=== PATIENT | female | born 1935 | race Caucasian/White ===

== ENCOUNTER → 2023-02-07 11:40 | Outpatient (REF) | payer MEDICARE, OTHER, SELFPAY | LOC: WOUND 11:40 | PROVIDERS: ATTENDING PHYSICIAN Surgery; REFERRING PHYSICIAN Internal Medicine | DX: T81.31XA Disruption of external operation (surgical) wound, not elsewhere classified, initial encounter (principal); I87.311 Chronic venous hypertension (idiopathic) with ulcer of right lower extremity; L97.812 Non-pressure chronic ulcer of other part of right lower leg with fat layer exposed; S51.001A Unspecified open wound of right elbow, initial encounter; I87.2 Venous insufficiency (chronic) (peripheral); Y83.8 Other surgical procedures as the cause of abnormal reaction of the patient, or of later complication, without mention of misadventure at the time of the procedure | CPT/HCPCS: 29581; 97597; 99213 ==

== ENCOUNTER → 2023-02-13 10:14 | Outpatient (REF) | payer MEDICARE, OTHER, SELFPAY | LOC: WOUND 10:14 | PROVIDERS: ATTENDING PHYSICIAN Surgery; REFERRING PHYSICIAN Internal Medicine | DX: T81.31XA Disruption of external operation (surgical) wound, not elsewhere classified, initial encounter (principal); I87.311 Chronic venous hypertension (idiopathic) with ulcer of right lower extremity; L97.812 Non-pressure chronic ulcer of other part of right lower leg with fat layer exposed; S51.001A Unspecified open wound of right elbow, initial encounter; I87.2 Venous insufficiency (chronic) (peripheral); Y83.8 Other surgical procedures as the cause of abnormal reaction of the patient, or of later complication, without mention of misadventure at the time of the procedure | CPT/HCPCS: 11042; 29581; 97597 ==

== ENCOUNTER 2023-08-16 16:21 | Emergency (ER) | payer MEDICARE, OTHER, SELFPAY ==
[2023-08-16 16:29] VITALS: BP 147/58
--- NOTE | 2023-08-16 17:41 | ED.GENMED ---
History of Present Illness
<Jenny Evans PA-C - Last Filed: 08/17/23 00:53>
General
Chief Complaint: Extremity Pain (non-traumatic)
Source: patient
Exam Limitations: none
Time Seen by Provider: 08/16/23 16:52
Nursing documentation reviewed up to this point in time: agreed with
Travel History
Have you had any contact with someone who has COVID-19?: No
Do you have any symptoms of coronavirus? Fever > 100 degrees, chills, cough, shortness of breath, sore throat, loss of taste or smell, muscle aches, or headache?: No
History of Present Illness
History of Present Illness:
Patient is a 88 year old female with past medical history of CAD, CHF, HTN, type 2 DM, osteoporosis presenting to the emergency department with multiple complaints. She states that earlier today she was sitting on her rollator and when attempting
to get up she heard a loud crack in her left arm and has been unable to move it much since. She endorses pain around left shoulder with no radiation down the arm. She denies any direct trauma to the arm. She denies any numbness or tingling of the
left arm.
In addition, she has been dealing with recent lower extremity swelling and tenderness bilaterally but significantly worse in right leg. She does have a history of venous insufficiency but the swelling and pain have been worsening recently. She was
seen by her primary care physician earlier this week for an outpatient ultrasound was ordered to rule out a blood clot�although the primary care did suspect this was due to her known venous insufficiency. She has not been able to get an ultrasound
at this point. She denies any chest pain, shortness of breath. No history of blood clots. She is not on a blood thinner
Past History
<Jenny Evans PA-C - Last Filed: 08/17/23 00:53>
Past History
ED Past Medical History: Asthma and NIDDM
ED Past Surgical History: Gynecological, Orthopedic (Right hip) and Tonsilectomy
Social History
Tobacco: Non-smoker
Alcohol: Daily
Drug: None
Personal:
Living: alone
Phy Exam
<Jenny Evans PA-C - Last Filed: 08/17/23 00:53>
Physical Exam
Physical Exam:
General: Frail-appearing, non-toxic�vital signs reviewed patient afebrile
HEENT: Atraumatic, normocephalic; protecting airway
Neck: appears supple, normal range of motion, no C-spine tenderness
CV: Regular rate rhythm, heart sounds normal, no evidence of cyanosis
Resp: No evidence of respiratory distress, lungs clear, no accessory muscle use
Abd: Non-distended
Extremities: No obvious deformity of left upper extremity; some tenderness to left shoulder and proximal humerus, very limited range of motion at left shoulder, unable to abduct
Neuro: alert, speech normal, no focal motor deficits, no focal neurologic deficits
Psych: Normal affect
Skin: Pitting edema of bilateral lower extremities right > left; some degree of redness and warmth of lower extremities R>L
Course
<Jenny Evans PA-C - Last Filed: 08/17/23 00:53>
Orders/Labs/Results
Orders:
Orders
08/16/23 18:04
Shoulder, Left 2 View CR [CR Shoulder - Left Min 2 View*] Urgent
Comment:
Reason For Exam: left shoulder pain
US Periph Venous LOWER Ext Ric Urgent
Comment:
Reason For Exam: bilateral lower extremity swelling
08/16/23 19:51
Sling Left-Treatment ONCE
Acetaminophen [Tylenol] 650 mg PO NOW STA
Vital Signs
Initial and Last Documented VS:
Initial Vital Signs
Temp Pulse Resp BP Pulse Ox
98.5 F 82 18 147/58 100
08/16/23 16:29 08/16/23 16:29 08/16/23 16:29 08/16/23 16:29 08/16/23 16:29
Last Documented Vital Signs
Temp Pulse Resp BP Pulse Ox
98.5 F 72 18 137/59 100
08/16/23 16:29 08/16/23 22:25 08/16/23 16:29 08/16/23 22:25 08/16/23 16:29
<Darrell Palmer DO - Last Filed: 08/16/23 20:17>
Orders/Labs/Results
Orders:
Orders
08/16/23 18:04
Shoulder, Left 2 View CR [CR Shoulder - Left Min 2 View*] Urgent
Comment:
Reason For Exam: left shoulder pain
US Periph Venous LOWER Ext Ric Urgent
Comment:
Reason For Exam: bilateral lower extremity swelling
08/16/23 19:51
Sling Left-Treatment ONCE
Acetaminophen [Tylenol] 650 mg PO NOW STA
Vital Signs
Initial and Last Documented VS:
Initial Vital Signs
Temp Pulse Resp BP Pulse Ox
98.5 F 82 18 147/58 100
08/16/23 16:29 08/16/23 16:29 08/16/23 16:29 08/16/23 16:29 08/16/23 16:29
Last Documented Vital Signs
Temp Pulse Resp BP Pulse Ox
98.5 F 72 18 137/59 100
08/16/23 16:29 08/16/23 22:25 08/16/23 16:29 08/16/23 22:25 08/16/23 16:29
<Jenny Evans PA-C - Last Filed: 08/17/23 00:53>
MDM/Problems Addressed
Differential Diagnosis Includes:
Muscular strain, fracture, dislocation, deep vein thrombosis, cellulitis, venous insufficiency
MDM/Problems Addressed:
Patient is 80-year-old female history of venous insufficiency, CHF, hypertension presenting for evaluation of acute onset left upper arm pain. She has also been noticing worsening redness and swelling of bilateral lower extremities. She had no
trauma to the arm. She reports hearing a 'crack' while trying to lift herself up from walker. She is seen by PCP earlier this week for swelling of lower extremities�they ordered an ultrasound which she has not been able to get completed yet. She
is hemodynamically stable. Physical exam as document above. Very limited range of motion in left arm with very mild palpable tenderness to proximal humerus. Bilateral pitting edema in lower extremities R>L. Will get x-ray of left shoulder. Will
get venous ultrasound bilateral lower extremities. Given Tylenol for pain. Will reassess
X-ray negative for any acute fracture or dislocation but do show findings consistent with significant degenerative disease/calcification. Suspect likely muscular injury. Will place in shoulder sling. Tylenol for pain. Ortho follow-up as needed.
Venous ultrasounds negative for any signs of DVT bilaterally. Suspect swelling likely due to venous insufficiency. Plan for PCP follow-up, compression, elevation
Patient stable for discharge. Return precautions discussed. She will follow-up with primary care and orthopedics. Patient and patient's daughter comfortable this plan. All questions answered.
Chronic conditions affecting care:
Venous insufficiency, CHF, HTN
Acute Exacerbation and/or Progression of Chronic Illness:
Lower extremity swelling, Left shoulder pain
<Jenny Evans PA-C - Last Filed: 08/17/23 00:53>
*Radiology
Radiology exam reviewed: preliminary read by ED provider and radiology read reviewed
*Pulse Oximetry
Patient hypoxic: no
*Brake Operator Sheet Metal Interpretation
Rate: Brake Operator Sheet Metal- N/A
*Critical Care Note
Total Time (30-74mins, 75-104mins- exclusive of procedures): Not Applicable
ED Attending Note
<Jenny Evans PA-C - Last Filed: 08/17/23 00:53>
-
Portions of this chart may have been created with voice recognition software.� Occasional wrong word or��sound alike� substitutions may have occurred due to the inherent limitations of voice recognition software.
<Darrell Palmer, DO - Last Filed: 08/16/23 20:17>
ED Attending Note
Patient seen and examined by attending physician: Yes
I performed the substantive portion of visit, reviewed & personally made and approve the management plan that is documented in note by myself or ANIYAH.: Yes
I performed a history and physical exam of patient and discussed management with resident, I reviewed resident's note and agree with documented findings and plan of care.: Yes
ED Attending Note:
I evaluated patient at bedside. The patient has decreased active range of motion of the left shoulder. There is tenderness at the proximal left humerus. She does have right greater than left lower extremity edema which is pitting. I personally
viewed x-ray and see no evidence for fracture however there is rather significant calcification/degenerative joint disease. Will place in sling.
Discharge Plan
Departure
Patient Disposition: Home (Routine Discharge)
Date of Disposition: 08/16/23
Time of Disposition: 21:56
Patient with high blood pressure during this ER visit?: Yes
Condition: Good
Covid-19: Not Applicable
Discharge Problem:
Right shoulder pain, Lower extremity edema
Instructions: Dependent Edema (DC), Shoulder Pain (DC), How to Use a Shoulder Sling
Prescriptions:
No Action
zolpidem [Ambien] 5 mg Tablet
5 mg PO HS PRN (Reason: Sleep)
Patient Comments:
06/01/2023: last filled 01/20/23, 90 tabs for 90 days from [facility]
furosemide 40 mg tablet
40 mg PO DAILY
omeprazole 20 mg capsule,delayed release(DR/EC)
20 mg PO DAILY
melatonin 3 mg tablet
3 mg PO HS
allopurinol 100 mg tablet
100 mg PO DAILY
ascorbic acid (vitamin C) [Vitamin C] 500 mg tablet
500 mg PO DAILY
amlodipine 10 mg tablet
5 mg PO DAILY
gabapentin 100 mg capsule
100 mg PO DAILY
loratadine 10 mg tablet
10 mg PO DAILY
Creon 36,000-114,000- 180,000 unit Capsule,Delayed Release(Dr/Ec)
2 cap PO Q12H
budesonide 3 mg Capsule,Delayed,Extend.Release
3 mg PO DAILY
cephalexin 500 mg Capsule
500 mg PO QID 7 Days Qty: 28 0RF
acetaminophen 500 mg Tablet
1,000 mg PO Q8H PRN (Reason: mild pain, Temp >/=100.4)
spironolactone 25 mg Tablet
25 mg PO DAILY Qty: 90 0RF
loperamide 2 mg Capsule
2 mg PO DAILYPRN PRN (Reason: diarrhea) Qty: 30 0RF
Saccharomyces boulardii 250 mg Capsule
250 mg PO DAILY Qty: 30 0RF
calcium carbonate [Antacid Extra-Strength] 300 mg (750 mg) Tablet,Chewable
2 tab PO Q4HPRN PRN (Reason: reflux) Qty: 100 0RF
multivitamin with folic acid [Tab-A-Evgeny] 400 mcg Tablet
1 tab PO NOON Qty: 90 0RF
hydralazine 25 mg Tablet
25 mg PO DAILY Qty: 90 0RF
glimepiride 2 mg Tablet
1 mg PO DAILY Qty: 90 0RF
Rx Instructions:
hold for DOS
famotidine 20 mg Tablet
20 mg PO HS PRN (Reason: Heartburn) Qty: 90 0RF
budesonide-formoterol [Symbicort] 80-4.5 mcg/actuation Hfa Aerosol Inhaler
2 puff INHALATION R BID Qty: 10.2 0RF
Referrals:
Venkata Prakash MD [Active] - Follow up in 1 week
Laura Saez MD [Family Provider] - Follow up in 1 week
Activity Restrictions/Additional Instructions:
-Return to the emergency department with any chest pain, shortness of breath, high fevers, significant worsening in pain, worsening in redness/ swelling of lower extremities, significant warmth of lower extremities, significant worsening in current
symptoms, or any other concerns
-You can take Tylenol as needed for discomfort of shoulder. You can apply ice to shoulder to decrease pain. Use sling as tolerated for comfort. Follow-up with orthopedics if pain/ decreased range of motion persists or worsens
-Follow-up with primary care for further evaluation/treatment of lower extremity swelling. I recommend compression and elevation to decrease lower extremity swelling.
Interventions
Interventions:
*Risk Screen - Suicide Last Done: 08/16/23 22:25
*General Assessment Last Done: 08/16/23 22:25
*Neglect/Abuse Screening Last Done: 08/16/23 22:25
*Nursing Disposition Last Done: 08/16/23 22:25
ED-Skin Assessment Last Done: 08/16/23 17:13
ED-Peripheral Vascular Assessment Last Done: 08/16/23 17:13
ED-Musculoskeletal Assessment Last Done: 08/16/23 17:13
Discharge Date and Time
Discharge Date/Time: 08/16/23 22:27
[2023-08-16] MEDS: TYLENOL 650 MG PO (20:43)
[2023-08-16 21:44] VITALS: BP 137/59
[2023-08-16 22:25] VITALS: BP 137/59
== END 2023-08-16 22:27 | disposition home or self-care (01) ==
LOC: EMR 16:21
PROVIDERS: EMERGENCY PHYSICIAN Emergency Medicine; FAMILY PHYSICIAN Internal Medicine
DX: M25.512 Pain in left shoulder (principal); R60.0 Localized edema; I11.0 Hypertensive heart disease with heart failure; I50.9 Heart failure, unspecified; I25.10 Atherosclerotic heart disease of native coronary artery without angina pectoris; E11.9 Type 2 diabetes mellitus without complications
CPT/HCPCS: 99284; 73030; 93970

== ENCOUNTER → 2023-09-11 14:42 | Outpatient (REF) | payer MEDICARE, OTHER, SELFPAY | LOC: RAD 14:42 | PROVIDERS: ATTENDING PHYSICIAN Internal Medicine | DX: R26.2 Difficulty in walking, not elsewhere classified (principal); M79.671 Pain in right foot | CPT/HCPCS: 73630 ==

== ENCOUNTER 2023-10-01 20:28 | Emergency (ER) | payer MEDICARE, OTHER, SELFPAY ==
[2023-10-01 20:32] VITALS: BP 162/63
[2023-10-01 20:54] LABS: % Basophils 0.5 % (0-2); % Eosinophils 1.1 % (0-6); % Immature Granulocytes 2.1 % (0-0.5); % Lymphocytes 8.9 % (20.5-51.1); % Monocytes 10.1 % (1.7-9.3); % Neutrophils 77.3 % (42.2-75.2); Absolute Basophils 0.1 10^3/uL (0-0.2); Absolute Eosinophils 0.1 10^3/uL (0-0.7); Absolute Immature Granulocytes 0.3 10^3/uL (0-0.05); Absolute Lymphocytes 1.1 10^3/uL (1.2-3.4); Absolute Monocytes 1.2 10^3/uL (0.1-0.6); Absolute Neutrophils 9.4 10^3/uL (1.4-6.5); Hematocrit 30.3 % (37.0-47.0); Hemoglobin 9.9 g/dL (12.0-16.0); Mean Corp Hgb Conc. 32.7 g/dL (33.0-37.0); Mean Corpuscular Hgb 25.4 pg (27.0-31.0); Mean Corpuscular Volume 77.7 fL (81.0-99.0); Mean Platelet Volume 9.4 fL (7.4-10.4); Nucleated Red Blood Cells % 0 %; Platelet Count 485 10^3/uL (130-400); Red Cell Dist. Width 17.8 % (11.5-14.5); White Blood Cell Count 12.2 10^3/uL (4.8-10.8)
[2023-10-01 21:06] LABS: Lactic Acid 1.1 mmol/L (0.7-2.0)
[2023-10-01 21:13] LABS: ALT (SGPT) 26 U/L (0-35); AST (SGOT) 30 U/L (14-36); Albumin 4.1 g/dl (3.5-5.0); Alkaline Phosphatase 61 U/L (38-126); Blood Urea Nitrogen 41 mg/dl (7-17); Calcium 9.5 mg/dl (8.4-10.2); Carbon Dioxide 23 mmol/L (22-30); Chloride 103 mmol/L (98-107); Glucose 123 mg/dl (70-99); Potassium 5.5 mmol/L (3.5-5.1); Sodium 138 mmol/L (135-145); Total Bilirubin 0.3 mg/dl (0.2-1.3); Total Protein 6.7 g/dl (6.3-8.2); eGFR 43.54
--- NOTE | 2023-10-02 00:42 | ED.GENMED ---
History of Present Illness
General
Chief Complaint: Skin Problem
Source: patient
Exam Limitations: none
Time Seen by Provider: 10/01/23 23:13
Nursing documentation reviewed up to this point in time: agreed with
Travel History
Have you had any contact with someone who has COVID-19?: No
Do you have any symptoms of coronavirus? Fever > 100 degrees, chills, cough, shortness of breath, sore throat, loss of taste or smell, muscle aches, or headache?: No
History of Present Illness
History of Present Illness:
Patient with history of venous insufficiency and dependent edema, presents to ED secondary to sudden onset of left lower leg swelling with bruising today. Denies trauma. Denies fever or chills. Denies loss of sensation or weakness. Denies calf
pain. Denies previous history of blood clots. Patient does wear compression stockings on her right leg. Denies recent illness. Denies recent change in medications or diet. Patient unfortunately has had number of similar symptoms in the past.
Patient has been evaluated by vascular surgeon, Dr. Farias, who has informed the patient that an acute intervention is not recommended.
Past History
Past History
ED Past Medical History: Asthma and NIDDM
ED Past Surgical History: Gynecological, Orthopedic (Right hip) and Tonsilectomy
Social History
Tobacco: Non-smoker
Alcohol: Daily
Drug: None
Personal:
Living: alone
Review of Systems
Review of Systems
Allergies reviewed?: Yes
All Other Systems: ROS reviewed and negative except as documented in HPI and ROS
Constitutional: Reports no symptoms
EENT: Reports no symptoms
Respiratory: Reports no symptoms; Denies trouble breathing
Cardiac: Reports no symptoms; Denies chest pain
ABD/GI: Reports no symptoms
Musculoskeletal: Reports edema
Skin: Reports no symptoms
Neurological: Reports no symptoms
Phy Exam
Physical Exam
Physical Exam:
Physical Exam
General: no apparent distress, not acutely ill. afebrile
Head: nc/at. eomi
Neck: supple. no meningeal signs.
Abdomen: normal bowel sounds. not tender.
Neuro: alert and oriented. no focal neurological deficits
Skin: no rash
Psychiatric: well kept. interactive and cooperative
Extremities: LLE edema noted without erythema/warmth, with minimal bruising noted over anterior and posterior lower leg.
Course
Orders/Labs/Results
Orders:
Orders
10/01/23 20:46
Complete Blood Count/With Diff Urgent
Comprehensive Metabolic Panel Urgent
Lactic Acid Urgent
Blood Culture Urgent
MONTEZ Source: Blood/Venous
Specimen Description:
10/01/23 20:47
US Periph Venous LOWER Ext LT Urgent
Comment:
Reason For Exam: swelling/redness
Abnormal Lab Results
10/01/23
20:46
WBC 12.2 H 10^3/uL
(4.8-10.8)
RBC 3.90 L 10^6/uL
(4.20-5.40)
Hgb 9.9 L g/dL
(12.0-16.0)
Hct 30.3 L %
(37.0-47.0)
MCV 77.7 L fL
(81.0-99.0)
MCH 25.4 L pg
(27.0-31.0)
MCHC 32.7 L g/dL
(33.0-37.0)
RDW 17.8 H %
(11.5-14.5)
Plt Count 485 H 10^3/uL
(130-400)
Abs Immat Gran (auto) 0.3 H 10^3/uL
(0-0.05)
Absolute Neuts (auto) 9.4 H 10^3/uL
(1.4-6.5)
Absolute Lymphs (auto) 1.1 L 10^3/uL
(1.2-3.4)
Absolute Monos (auto) 1.2 H 10^3/uL
(0.1-0.6)
Immature Gran % 2.1 H %
(0-0.5)
Neutrophils % 77.3 H %
(42.2-75.2)
Lymphocytes % 8.9 L %
(20.5-51.1)
Monocytes % 10.1 H %
(1.7-9.3)
Potassium 5.5 H mmol/L
(3.5-5.1)
BUN 41 H mg/dl
(7-17)
Creatinine 1.2 H mg/dL
(0.6-1.0)
Glucose 123 H mg/dl
(70-99)
10/01/23 20:46
10/01/23 20:46
Vital Signs
Initial and Last Documented VS:
Initial Vital Signs
Temp Pulse Resp BP Pulse Ox
97.7 F 85 18 162/63 99
10/01/23 20:32 10/01/23 20:32 10/01/23 20:32 10/01/23 20:32 10/01/23 20:32
Last Documented Vital Signs
Temp Pulse Resp BP Pulse Ox
98.5 F 85 18 148/54 95
10/02/23 00:45 10/02/23 00:45 10/02/23 00:45 10/02/23 00:45 10/02/23 00:45
MDM/Problems Addressed
MDM/Problems Addressed:
History and exam concerning for recurrent left lower leg swelling, without any evidence of reaction nor any neurological deficit. Ultrasound: No DVT. Patient otherwise is afebrile and nontoxic-appearing. Patient will be advised to continue to use
compression stocking at home along with leg elevation. Recommended PCP or vascular surgery follow-up as an outpatient.
*Critical Care Note
Total Time (30-74mins, 75-104mins- exclusive of procedures): Not Applicable
ED Attending Note
-
Portions of this chart may have been created with voice recognition software.� Occasional wrong word or��sound alike� substitutions may have occurred due to the inherent limitations of voice recognition software.
Discharge Plan
Departure
Patient Disposition: Home (Routine Discharge)
Date of Disposition: 10/02/23
Time of Disposition: 00:43
Patient with high blood pressure during this ER visit?: Yes
Discharge Problem:
Left leg swelling
Instructions: Dependent Edema (DC)
Prescriptions:
No Action
zolpidem [Ambien] 5 mg Tablet
5 mg PO HS PRN (Reason: Sleep)
Patient Comments:
06/01/2023: last filled 01/20/23, 90 tabs for 90 days from [facility]
furosemide 40 mg tablet
40 mg PO DAILY
omeprazole 20 mg capsule,delayed release(DR/EC)
20 mg PO DAILY
melatonin 3 mg tablet
3 mg PO HS
allopurinol 100 mg tablet
100 mg PO DAILY
ascorbic acid (vitamin C) [Vitamin C] 500 mg tablet
500 mg PO DAILY
amlodipine 10 mg tablet
5 mg PO DAILY
gabapentin 100 mg capsule
100 mg PO DAILY
loratadine 10 mg tablet
10 mg PO DAILY
Creon 36,000-114,000- 180,000 unit Capsule,Delayed Release(Dr/Ec)
2 cap PO Q12H
budesonide 3 mg Capsule,Delayed,Extend.Release
3 mg PO DAILY
cephalexin 500 mg Capsule
500 mg PO QID 7 Days Qty: 28 0RF
acetaminophen 500 mg Tablet
1,000 mg PO Q8H PRN (Reason: mild pain, Temp >/=100.4)
spironolactone 25 mg Tablet
25 mg PO DAILY Qty: 90 0RF
loperamide 2 mg Capsule
2 mg PO DAILYPRN PRN (Reason: diarrhea) Qty: 30 0RF
Saccharomyces boulardii 250 mg Capsule
250 mg PO DAILY Qty: 30 0RF
calcium carbonate [Antacid Extra-Strength] 300 mg (750 mg) Tablet,Chewable
2 tab PO Q4HPRN PRN (Reason: reflux) Qty: 100 0RF
multivitamin with folic acid [Tab-A-Evgeny] 400 mcg Tablet
1 tab PO NOON Qty: 90 0RF
hydralazine 25 mg Tablet
25 mg PO DAILY Qty: 90 0RF
glimepiride 2 mg Tablet
1 mg PO DAILY Qty: 90 0RF
Rx Instructions:
hold for DOS
famotidine 20 mg Tablet
20 mg PO HS PRN (Reason: Heartburn) Qty: 90 0RF
budesonide-formoterol [Symbicort] 80-4.5 mcg/actuation Hfa Aerosol Inhaler
2 puff INHALATION R BID Qty: 10.2 0RF
Referrals:
Laura Saez MD [Family Provider] -
Rafa Farias MD [Active] -
Activity Restrictions/Additional Instructions:
As discussed, please follow-up with your primary care physician and/or vascular surgeon for reevaluation this week. Until then, showing recommend utilization of leg compression stocking, as well as elevation of the affected leg.
Interventions
Interventions:
*Risk Screen - Suicide Last Done: 10/01/23 20:32
*General Assessment Last Done: 10/01/23 20:32
*Neglect/Abuse Screening Last Done: 10/01/23 20:32
ED- Fall Risk Assessment Last Done: 10/02/23 00:00
*Nursing Disposition Last Done: 10/02/23 00:56
ED-Skin Assessment Last Done: 10/02/23 00:00
Discharge Date and Time
Discharge Date/Time: 10/02/23 00:57
[2023-10-02 00:45] VITALS: BP 148/54
== END 2023-10-02 00:57 | disposition home or self-care (01) ==
LOC: EMR 20:28
PROVIDERS: Emergency Medicine; EMERGENCY PHYSICIAN Emergency Medicine; FAMILY PHYSICIAN Internal Medicine
DX: R22.42 Localized swelling, mass and lump, left lower limb (principal); R03.0 Elevated blood-pressure reading, without diagnosis of hypertension
CPT/HCPCS: 99284; 80053; 83605; 85025; 87040; 93971

== ENCOUNTER → 2024-01-28 12:43 | Outpatient (REF) | payer MEDICARE, OTHER, SELFPAY | LOC: WOUND 12:43 | PROVIDERS: ATTENDING PHYSICIAN Surgery; FAMILY PHYSICIAN Internal Medicine | DX: T81.31XA Disruption of external operation (surgical) wound, not elsewhere classified, initial encounter (principal); L97.412 Non-pressure chronic ulcer of right heel and midfoot with fat layer exposed; L89.610 Pressure ulcer of right heel, unstageable; L97.222 Non-pressure chronic ulcer of left calf with fat layer exposed; I87.313 Chronic venous hypertension (idiopathic) with ulcer of bilateral lower extremity; R23.4 Changes in skin texture; I87.2 Venous insufficiency (chronic) (peripheral); I10 Essential (primary) hypertension; R26.81 Unsteadiness on feet; Y83.8 Other surgical procedures as the cause of abnormal reaction of the patient, or of later complication, without mention of misadventure at the time of the procedure | CPT/HCPCS: 99214 ==

== ENCOUNTER → 2024-01-31 15:04 | Outpatient (REF) | payer MEDICARE, OTHER, SELFPAY | LOC: REG 15:04 | PROVIDERS: ATTENDING PHYSICIAN Internal Medicine Gastroenterology; FAMILY PHYSICIAN Internal Medicine | DX: R19.7 Diarrhea, unspecified (principal) | CPT/HCPCS: 36415; 87045; 87046; 87077; 87324; 87427; 87449; 89055 ==

== ENCOUNTER → 2024-02-04 13:14 | Outpatient (REF) | payer MEDICARE, OTHER, SELFPAY | LOC: WOUND 13:14 | PROVIDERS: ATTENDING PHYSICIAN Surgery; FAMILY PHYSICIAN Internal Medicine | DX: T81.31XA Disruption of external operation (surgical) wound, not elsewhere classified, initial encounter (principal); Y83.8 Other surgical procedures as the cause of abnormal reaction of the patient, or of later complication, without mention of misadventure at the time of the procedure; L97.412 Non-pressure chronic ulcer of right heel and midfoot with fat layer exposed; L89.610 Pressure ulcer of right heel, unstageable; L97.222 Non-pressure chronic ulcer of left calf with fat layer exposed; I87.313 Chronic venous hypertension (idiopathic) with ulcer of bilateral lower extremity; R23.4 Changes in skin texture; I87.2 Venous insufficiency (chronic) (peripheral); I10 Essential (primary) hypertension; R26.81 Unsteadiness on feet | CPT/HCPCS: 11042 ==

== ENCOUNTER → 2024-02-11 07:35 | Outpatient (REF) | payer MEDICARE, OTHER, SELFPAY | LOC: WOUND 07:35 | PROVIDERS: ATTENDING PHYSICIAN Surgery; FAMILY PHYSICIAN Internal Medicine | DX: T81.31XA Disruption of external operation (surgical) wound, not elsewhere classified, initial encounter (principal); Y83.8 Other surgical procedures as the cause of abnormal reaction of the patient, or of later complication, without mention of misadventure at the time of the procedure; M25.571 Pain in right ankle and joints of right foot; R22.41 Localized swelling, mass and lump, right lower limb; L97.412 Non-pressure chronic ulcer of right heel and midfoot with fat layer exposed; L89.610 Pressure ulcer of right heel, unstageable; L97.222 Non-pressure chronic ulcer of left calf with fat layer exposed; I87.313 Chronic venous hypertension (idiopathic) with ulcer of bilateral lower extremity; R23.4 Changes in skin texture; I87.2 Venous insufficiency (chronic) (peripheral); I10 Essential (primary) hypertension; R26.81 Unsteadiness on feet | CPT/HCPCS: 11042; 99213 ==

== ENCOUNTER 2024-02-11 11:56 | Emergency (ER) | payer MEDICARE, OTHER, SELFPAY ==
[2024-02-11 12:03] VITALS: BP 137/52
--- NOTE | 2024-02-11 12:47 | ED.SKININJ ---
HPI-Injury
General
Chief Complaint: Skin Problem
Source: patient
Exam Limitations: none
Time Seen by Provider: 02/11/24 12:46
Nursing documentation reviewed up to this point in time: agreed with
History of Present Illness-Injury
Initial Injury comments:
88-year-old female with history of CHF, CAD, HTN, NM, PVD, GERD, NIDDM presents for swelling and pain right ankle. Pt has a chronic wound on dorsum of foot and sees Wound Care weekly. Her ankle pain is new in past 2 days and she states has nothing
to do with the wound as that gives her no pain. Caregiver at bedside states she last saw her 3 days ago, pt was walking as usual with her rollator and they did do more walking than usual, out to lunch, etc. Pt does not recall any injury. Pain
minimal at rest.
Past History
Past History
ED Past Medical History: Asthma, NIDDM and Other (chronic anterior right ankle wound since 11/13, [facility])
ED Past Surgical History: Gynecological, Orthopedic (Right hip) and Tonsilectomy
Social History
Tobacco: Non-smoker
Alcohol: Daily
Drug: None
Personal:
Living: alone
Review of Systems
Review of Systems
Allergies reviewed?: Yes
All Other Systems: ROS reviewed and negative except as documented in HPI and ROS
Constitutional: Denies fever or chills
Musculoskeletal: Reports other (swelling/pain lateral right ankle)
Skin: Reports other (wound anterior right ankle, clean, healing well)
Phy Exam
Physical Exam
Physical Exam:
PHYSICAL EXAMINATION:
General: no apparent distress, not acutely ill
Neuro: alert and oriented.
Psychiatric: well kept. interactive and cooperative
Musculoskeletal: Moves with ease. Right lateral ankle is swollen and tender ankle is swollen and tender, skin intact. Distal neurovascular intact. Skin intact
Skin: Warm, pink. Open wound approx 2 x 3 cm anterior right ankle. Appears to be healing well. Surrounding skin is normal.
Course
Orders/Labs/Results
Orders:
Orders
02/11/24 12:55
Ankle, Right 3 view CR [CR Ankle - Right Min 3 Views *] Urgent
Comment:
Reason For Exam: pain,. swelling laterally no recollection of injur
02/11/24 13:36
CRP [C-Reactive Protein] Urgent
Complete Blood Count/With Diff Urgent
Comprehensive Metabolic Panel Urgent
Sed Rate [Erythrocyte Sed Rate] Urgent
02/11/24 14:15
Jerry Wrap Right-Treatment ONCE
Air Splint Right-Treatment ONCE
Abnormal Lab Results
02/11/24
13:36
WBC 12.3 H 10^3/uL
(4.8-10.8)
RBC 3.48 L 10^6/uL
(4.20-5.40)
Hgb 8.8 L g/dL
(12.0-16.0)
Hct 26.5 L %
(37.0-47.0)
MCV 76.1 L fL
(81.0-99.0)
MCH 25.3 L pg
(27.0-31.0)
RDW 20.2 H %
(11.5-14.5)
Abs Immat Gran (auto) 0.1 H 10^3/uL
(0-0.05)
Absolute Neuts (auto) 9.9 H 10^3/uL
(1.4-6.5)
Absolute Lymphs (auto) 0.7 L 10^3/uL
(1.2-3.4)
Absolute Monos (auto) 1.4 H 10^3/uL
(0.1-0.6)
Immature Gran % 0.9 H %
(0-0.5)
Neutrophils % 80.1 H %
(42.2-75.2)
Lymphocytes % 5.6 L %
(20.5-51.1)
Monocytes % 11.5 H %
(1.7-9.3)
ESR 75 H mm/hour
(0-20)
Sodium 134 L mmol/L
(135-145)
Potassium 5.7 H mmol/L
(3.5-5.1)
BUN 37 H mg/dl
(7-17)
Creatinine 1.1 H mg/dL
(0.6-1.0)
Glucose 116 H mg/dl
(70-99)
C-Reactive Protein 196.40 H mg/L
(0.0-10.00)
Total Protein 5.8 L g/dl
(6.3-8.2)
02/11/24 13:36
02/11/24 13:36
Vital Signs
Initial and Last Documented VS:
Initial Vital Signs
Pulse Resp BP Pulse Ox
77 18 137/52 99
02/11/24 12:03 02/11/24 12:03 02/11/24 12:03 02/11/24 12:03
Last Documented Vital Signs
Temp Pulse Resp BP Pulse Ox
98.1 F 76 18 131/71 99
02/11/24 12:05 02/11/24 14:38 02/11/24 14:38 02/11/24 14:38 02/11/24 14:38
Cook Box Filler consulted with Physician
Cook Box Filler consulted with physician?: Yes
Name of Physician Consulted: Madelaine
MDM/Problems Addressed
Differential Diagnosis Includes:
sprain vs fracture
MDM/Problems Addressed:
88-year-old female with history of CHF, CAD, HTN, NM, PVD, GERD, NIDDM presents for swelling and pain right ankle. Pt has a chronic wound on dorsum of foot and sees Wound Care weekly. Her ankle pain is new in past 2 days and she states has nothing
to do with the wound as that gives her no pain. Caregiver at bedside states she last saw her 3 days ago, pt was walking as usual with her rollator and they did do more walking than usual, out to lunch, etc. Pt does not recall any injury. Pain
minimal at rest.
Dr. Burkett informs me that Dr. Mckay requests lab work. Ordered.
Xray right ankle: nothing acute, atherosclerotic vessels noted. Lucency anterior ankle ST consistent with her chronic wound
Will treat for sprain/ST injury for now
CBC: WBC 12.3, hemoglobin 8.8 down from 9.9 on 10/01/2023
CMP: Consistent with her chronic renal failure baseline. K+ 5.7
CRP 196.40
Sed rate 75
All lab results copied, abnormalities circled. Pt has a 3 p.m. appointment with her PCP and will review then
R ankle Wound dressed
Jerry wrap and air splint applied, distal neurovascular intact after application
Referred to orthopedics as needed
Case discussed with Madelaine who examined patient, agrees with assessment and plan
*Radiology
Radiology exam reviewed: preliminary read by ED provider (No acute abnormality. )
*Critical Care Note
Total Time (30-74mins, 75-104mins- exclusive of procedures): Not Applicable
ED Attending Note
-
Portions of this chart may have been created with voice recognition software.� Occasional wrong word or��sound alike� substitutions may have occurred due to the inherent limitations of voice recognition software.
Discharge Plan
Departure
Patient Disposition: Home (Routine Discharge)
Date of Disposition: 02/11/24
Time of Disposition: 14:16
Patient with high blood pressure during this ER visit?: No
Condition: Good
Discharge Problem:
Soft tissue injury of right ankle
Instructions: Ankle Sprain ED
Prescriptions:
No Action
zolpidem [Ambien] 5 mg Tablet
5 mg PO HS PRN (Reason: Sleep)
Patient Comments:
06/01/2023: last filled 01/20/23, 90 tabs for 90 days from [facility]
furosemide 40 mg tablet
40 mg PO DAILY
omeprazole 20 mg capsule,delayed release(DR/EC)
20 mg PO DAILY
melatonin 3 mg tablet
3 mg PO HS
allopurinol 100 mg tablet
100 mg PO DAILY
ascorbic acid (vitamin C) [Vitamin C] 500 mg tablet
500 mg PO DAILY
amlodipine 10 mg tablet
5 mg PO DAILY
gabapentin 100 mg capsule
100 mg PO DAILY
loratadine 10 mg tablet
10 mg PO DAILY
Creon 36,000-114,000- 180,000 unit Capsule,Delayed Release(Dr/Ec)
2 cap PO Q12H
budesonide 3 mg Capsule,Delayed,Extend.Release
3 mg PO DAILY
cephalexin 500 mg Capsule
500 mg PO QID 7 Days Qty: 28 0RF
acetaminophen 500 mg Tablet
1,000 mg PO Q8H PRN (Reason: mild pain, Temp >/=100.4)
spironolactone 25 mg Tablet
25 mg PO DAILY Qty: 90 0RF
loperamide 2 mg Capsule
2 mg PO DAILYPRN PRN (Reason: diarrhea) Qty: 30 0RF
Saccharomyces boulardii 250 mg Capsule
250 mg PO DAILY Qty: 30 0RF
calcium carbonate [Antacid Extra-Strength] 300 mg (750 mg) Tablet,Chewable
2 tab PO Q4HPRN PRN (Reason: reflux) Qty: 100 0RF
multivitamin with folic acid [Tab-A-Evgeny] 400 mcg Tablet
1 tab PO NOON Qty: 90 0RF
hydralazine 25 mg Tablet
25 mg PO DAILY Qty: 90 0RF
glimepiride 2 mg Tablet
1 mg PO DAILY Qty: 90 0RF
Rx Instructions:
hold for DOS
famotidine 20 mg Tablet
20 mg PO HS PRN (Reason: Heartburn) Qty: 90 0RF
budesonide-formoterol [Symbicort] 80-4.5 mcg/actuation Hfa Aerosol Inhaler
2 puff INHALATION R BID Qty: 10.2 0RF
Referrals:
Your, Primary Doctor [Other] - Keep scheduled appt
Laura Mcrae I., DO [Active] - As needed
Laura Saez MD [Family Provider] -
Activity Restrictions/Additional Instructions:
As we discussed, the swelling and pain in your ankle may be from overuse when you were walking more than usual on Sunday.
We will treat the ankle as a sprain for now
The x-ray shows nothing broken or out of place.
Wear the Jerry wrap and air splint until you can walk comfortably without them. See the orthopedic doctor if the ankle is not a lot better in 1 week or not 100% better in 3 weeks.
Tylenol 1000 mg every 6 hours as needed for pain.
Your blood work shows that you are anemic, please take your blood work results from today to your doctor's office with you this afternoon.
Interventions
Interventions:
*Risk Screen - Suicide Last Done: 02/11/24 12:03
*General Assessment Last Done: 02/11/24 12:03
*Neglect/Abuse Screening Last Done: 02/11/24 12:03
ED- Fall Risk Assessment Last Done: 02/11/24 12:13
*ED COVID-19 Vaccine History Last Done: 02/11/24 12:03
*Nursing Disposition Last Done: 02/11/24 14:41
ED-Skin Assessment Last Done: 02/11/24 12:16
Discharge Date and Time
Discharge Date/Time: 02/11/24 14:44
Print Language: BULGARIAN
[2024-02-11 13:53] LABS: % Basophils 0.6 % (0-2); % Eosinophils 1.3 % (0-6); % Immature Granulocytes 0.9 % (0-0.5); % Lymphocytes 5.6 % (20.5-51.1); % Monocytes 11.5 % (1.7-9.3); % Neutrophils 80.1 % (42.2-75.2); Absolute Basophils 0.1 10^3/uL (0-0.2); Absolute Eosinophils 0.2 10^3/uL (0-0.7); Absolute Immature Granulocytes 0.1 10^3/uL (0-0.05); Absolute Lymphocytes 0.7 10^3/uL (1.2-3.4); Absolute Monocytes 1.4 10^3/uL (0.1-0.6); Absolute Neutrophils 9.9 10^3/uL (1.4-6.5); Hematocrit 26.5 % (37.0-47.0); Hemoglobin 8.8 g/dL (12.0-16.0); Mean Corp Hgb Conc. 33.2 g/dL (33.0-37.0); Mean Corpuscular Hgb 25.3 pg (27.0-31.0); Mean Corpuscular Volume 76.1 fL (81.0-99.0); Mean Platelet Volume 10.1 fL (7.4-10.4); Nucleated Red Blood Cells % 0 %; Platelet Count 360 10^3/uL (130-400); Red Blood Cell Count 3.48 10^6/uL (4.20-5.40); Red Cell Dist. Width 20.2 % (11.5-14.5); White Blood Cell Count 12.3 10^3/uL (4.8-10.8)
[2024-02-11 14:04] LABS: Erythrocyte Sed Rate 75 mm/hour (0-20)
[2024-02-11 14:06] LABS: ALT (SGPT) 16 U/L (0-35); AST (SGOT) 24 U/L (14-36); Albumin 3.6 g/dl (3.5-5.0); Alkaline Phosphatase 55 U/L (38-126); Blood Urea Nitrogen 37 mg/dl (7-17); Calcium 8.7 mg/dl (8.4-10.2); Carbon Dioxide 24 mmol/L (22-30); Chloride 103 mmol/L (98-107); Glucose 116 mg/dl (70-99); Potassium 5.7 mmol/L (3.5-5.1); Sodium 134 mmol/L (135-145); Total Bilirubin 0.3 mg/dl (0.2-1.3); Total Protein 5.8 g/dl (6.3-8.2); eGFR 48.33
[2024-02-11 14:38] VITALS: BP 131/71
== END 2024-02-11 14:44 | disposition home or self-care (01) ==
LOC: EMR 11:56
PROVIDERS: Registered Nurse; EMERGENCY PHYSICIAN Emergency Medicine; FAMILY PHYSICIAN Internal Medicine
DX: S99.911A Unspecified injury of right ankle, initial encounter (principal); X58.XXXA Exposure to other specified factors, initial encounter; I13.0 Hypertensive heart and chronic kidney disease with heart failure and stage 1 through stage 4 chronic kidney disease, or unspecified chronic kidney disease; I50.9 Heart failure, unspecified; I25.10 Atherosclerotic heart disease of native coronary artery without angina pectoris; E11.51 Type 2 diabetes mellitus with diabetic peripheral angiopathy without gangrene; E11.22 Type 2 diabetes mellitus with diabetic chronic kidney disease; I25.2 Old myocardial infarction; J45.909 Unspecified asthma, uncomplicated; K21.9 Gastro-esophageal reflux disease without esophagitis
CPT/HCPCS: 99283; 73610; 80053; 85025; 85652; 86140

== ENCOUNTER → 2024-02-18 14:29 | Outpatient (REF) | payer MEDICARE, OTHER, SELFPAY | LOC: WOUND 14:29 | PROVIDERS: ATTENDING PHYSICIAN Surgery; FAMILY PHYSICIAN Internal Medicine | DX: T81.31XA Disruption of external operation (surgical) wound, not elsewhere classified, initial encounter (principal); R22.41 Localized swelling, mass and lump, right lower limb; L97.412 Non-pressure chronic ulcer of right heel and midfoot with fat layer exposed; L89.610 Pressure ulcer of right heel, unstageable; L97.222 Non-pressure chronic ulcer of left calf with fat layer exposed; I87.313 Chronic venous hypertension (idiopathic) with ulcer of bilateral lower extremity; R23.4 Changes in skin texture; I87.2 Venous insufficiency (chronic) (peripheral); I10 Essential (primary) hypertension; R26.81 Unsteadiness on feet; Y83.8 Other surgical procedures as the cause of abnormal reaction of the patient, or of later complication, without mention of misadventure at the time of the procedure | CPT/HCPCS: 11042 ==

== ENCOUNTER → 2024-02-25 14:42 | Outpatient (REF) | payer MEDICARE, OTHER, SELFPAY | LOC: WOUND 14:42 | PROVIDERS: ATTENDING PHYSICIAN Surgery; FAMILY PHYSICIAN Internal Medicine | DX: T81.31XA Disruption of external operation (surgical) wound, not elsewhere classified, initial encounter (principal); L97.412 Non-pressure chronic ulcer of right heel and midfoot with fat layer exposed; L89.610 Pressure ulcer of right heel, unstageable; L97.222 Non-pressure chronic ulcer of left calf with fat layer exposed; I87.313 Chronic venous hypertension (idiopathic) with ulcer of bilateral lower extremity; R23.4 Changes in skin texture; I87.2 Venous insufficiency (chronic) (peripheral); I10 Essential (primary) hypertension; R26.81 Unsteadiness on feet; Y83.8 Other surgical procedures as the cause of abnormal reaction of the patient, or of later complication, without mention of misadventure at the time of the procedure | CPT/HCPCS: 11042 ==

== ENCOUNTER → 2024-03-03 11:00 | Outpatient (REF) | payer MEDICARE, OTHER, SELFPAY | LOC: WOUND 11:00 | PROVIDERS: ATTENDING PHYSICIAN Surgery; FAMILY PHYSICIAN Internal Medicine | DX: T81.31XA Disruption of external operation (surgical) wound, not elsewhere classified, initial encounter (principal); L97.412 Non-pressure chronic ulcer of right heel and midfoot with fat layer exposed; L89.610 Pressure ulcer of right heel, unstageable; L97.222 Non-pressure chronic ulcer of left calf with fat layer exposed; I87.313 Chronic venous hypertension (idiopathic) with ulcer of bilateral lower extremity; R23.4 Changes in skin texture; I87.2 Venous insufficiency (chronic) (peripheral); I10 Essential (primary) hypertension; R26.81 Unsteadiness on feet; Y83.8 Other surgical procedures as the cause of abnormal reaction of the patient, or of later complication, without mention of misadventure at the time of the procedure | CPT/HCPCS: 11042 ==

== ENCOUNTER → 2024-03-10 11:00 | Outpatient (REF) | payer MEDICARE, OTHER, SELFPAY | LOC: WOUND 11:00 | PROVIDERS: ATTENDING PHYSICIAN Surgery; FAMILY PHYSICIAN Internal Medicine | DX: T81.31XA Disruption of external operation (surgical) wound, not elsewhere classified, initial encounter (principal); L97.412 Non-pressure chronic ulcer of right heel and midfoot with fat layer exposed; L89.610 Pressure ulcer of right heel, unstageable; L97.222 Non-pressure chronic ulcer of left calf with fat layer exposed; I87.313 Chronic venous hypertension (idiopathic) with ulcer of bilateral lower extremity; R23.4 Changes in skin texture; I87.2 Venous insufficiency (chronic) (peripheral); I10 Essential (primary) hypertension; R26.81 Unsteadiness on feet; Y83.8 Other surgical procedures as the cause of abnormal reaction of the patient, or of later complication, without mention of misadventure at the time of the procedure | CPT/HCPCS: 97597 ==

== ENCOUNTER → 2024-03-17 10:52 | Outpatient (REF) | payer MEDICARE, OTHER, SELFPAY | LOC: WOUND 10:52 | PROVIDERS: ATTENDING PHYSICIAN Surgery; FAMILY PHYSICIAN Internal Medicine | DX: T81.31XA Disruption of external operation (surgical) wound, not elsewhere classified, initial encounter (principal); L97.412 Non-pressure chronic ulcer of right heel and midfoot with fat layer exposed; L89.610 Pressure ulcer of right heel, unstageable; L97.222 Non-pressure chronic ulcer of left calf with fat layer exposed; I87.313 Chronic venous hypertension (idiopathic) with ulcer of bilateral lower extremity; R23.4 Changes in skin texture; I87.2 Venous insufficiency (chronic) (peripheral); I10 Essential (primary) hypertension; R26.81 Unsteadiness on feet; Y83.8 Other surgical procedures as the cause of abnormal reaction of the patient, or of later complication, without mention of misadventure at the time of the procedure | CPT/HCPCS: 97597 ==

== ENCOUNTER → 2024-03-31 10:56 | Outpatient (REF) | payer MEDICARE, OTHER, SELFPAY | LOC: WOUND 10:56 | PROVIDERS: ATTENDING PHYSICIAN Surgery; FAMILY PHYSICIAN Internal Medicine | DX: T81.31XA Disruption of external operation (surgical) wound, not elsewhere classified, initial encounter (principal); Y83.8 Other surgical procedures as the cause of abnormal reaction of the patient, or of later complication, without mention of misadventure at the time of the procedure; L97.412 Non-pressure chronic ulcer of right heel and midfoot with fat layer exposed; L89.610 Pressure ulcer of right heel, unstageable; L97.222 Non-pressure chronic ulcer of left calf with fat layer exposed; I87.313 Chronic venous hypertension (idiopathic) with ulcer of bilateral lower extremity; R23.4 Changes in skin texture; I87.2 Venous insufficiency (chronic) (peripheral); I10 Essential (primary) hypertension; R26.81 Unsteadiness on feet | CPT/HCPCS: 99213 ==

== ENCOUNTER → 2024-04-02 08:58 | Outpatient (REF) | payer MEDICARE, OTHER, SELFPAY ==
[2024-04-02 10:01] LABS: % Basophils 0.8 % (0-2); % Immature Granulocytes 1.3 % (0-0.5); % Lymphocytes 10.4 % (20.5-51.1); % Monocytes 8.8 % (1.7-9.3); % Neutrophils 67.7 % (42.2-75.2); Absolute Basophils 0.1 10^3/uL (0-0.2); Absolute Eosinophils 1.3 10^3/uL (0-0.7); Absolute Immature Granulocytes 0.2 10^3/uL (0-0.05); Absolute Lymphocytes 1.2 10^3/uL (1.2-3.4); Hematocrit 32.7 % (37.0-47.0); Hemoglobin 10.2 g/dL (12.0-16.0); Mean Corp Hgb Conc. 31.2 g/dL (33.0-37.0); Mean Corpuscular Hgb 24.3 pg (27.0-31.0); Mean Corpuscular Volume 77.9 fL (81.0-99.0); Nucleated Red Blood Cells % 0 %; Platelet Count 556 10^3/uL (130-400); Red Cell Dist. Width 20.6 % (11.5-14.5); White Blood Cell Count 11.7 10^3/uL (4.8-10.8)
[2024-04-02 10:42] LABS: Glycohemoglobin (HgbA1c) 7.4 % (4.0-5.6)
[2024-04-02 10:58] LABS: ALT (SGPT) 18 U/L (0-35); AST (SGOT) 21 U/L (14-36); Alkaline Phosphatase 55 U/L (38-126); Blood Urea Nitrogen 43 mg/dl (7-17); Calcium 9.5 mg/dl (8.4-10.2); Carbon Dioxide 25 mmol/L (22-30); Chloride 104 mmol/L (98-107); Glucose 109 mg/dl (70-99); HDL Cholesterol 69 mg/dl; LDL Cholesterol, Calculated 47 mg/dl; Potassium 5.2 mmol/L (3.5-5.1); Sodium 143 mmol/L (135-145); Total Bilirubin 0.3 mg/dl (0.2-1.3); Total Cholesterol 131 mg/dl (50-199); Total Protein 6.2 g/dl (6.3-8.2); Triglyceride 75 mg/dl (10-149); Very Low Density Lipoprotein 15 mg/dl (0-30); eGFR 48.33
[2024-04-02 11:22] LABS: TSH Reflex To Free T4 2.01 uIU/ml (0.47-4.68)
[2024-04-02 15:25] LABS: Microalbumin, Random Urine < 0.6 mg/dl (0.6-1.7)
== END ==
LOC: REG 08:58
PROVIDERS: ATTENDING PHYSICIAN Nurse Practitioner Family; FAMILY PHYSICIAN Internal Medicine
DX: E11.65 Type 2 diabetes mellitus with hyperglycemia (principal); L03.115 Cellulitis of right lower limb; E11.9 Type 2 diabetes mellitus without complications; E87.1 Hypo-osmolality and hyponatremia; D64.9 Anemia, unspecified; E87.5 Hyperkalemia
CPT/HCPCS: 36415; 80053; 80061; 82043; 82570; 83036; 84443; 85025

== ENCOUNTER → 2024-04-14 10:57 | Outpatient (REF) | payer MEDICARE, OTHER, SELFPAY | LOC: WOUND 10:57 | PROVIDERS: ATTENDING PHYSICIAN Surgery; FAMILY PHYSICIAN Internal Medicine | DX: T81.31XA Disruption of external operation (surgical) wound, not elsewhere classified, initial encounter (principal); L97.412 Non-pressure chronic ulcer of right heel and midfoot with fat layer exposed; L89.610 Pressure ulcer of right heel, unstageable; L97.222 Non-pressure chronic ulcer of left calf with fat layer exposed; I87.313 Chronic venous hypertension (idiopathic) with ulcer of bilateral lower extremity; R23.4 Changes in skin texture; I87.2 Venous insufficiency (chronic) (peripheral); I10 Essential (primary) hypertension; R26.81 Unsteadiness on feet; Y83.8 Other surgical procedures as the cause of abnormal reaction of the patient, or of later complication, without mention of misadventure at the time of the procedure | CPT/HCPCS: 99212 ==

== ENCOUNTER → 2024-05-12 11:27 | Outpatient (REF) | payer MEDICARE, OTHER, SELFPAY | LOC: WOUND 11:27 | PROVIDERS: ATTENDING PHYSICIAN Surgery | DX: T81.31XA Disruption of external operation (surgical) wound, not elsewhere classified, initial encounter (principal); L97.412 Non-pressure chronic ulcer of right heel and midfoot with fat layer exposed; L89.610 Pressure ulcer of right heel, unstageable; L97.222 Non-pressure chronic ulcer of left calf with fat layer exposed; I87.313 Chronic venous hypertension (idiopathic) with ulcer of bilateral lower extremity; R23.4 Changes in skin texture; I87.2 Venous insufficiency (chronic) (peripheral); I10 Essential (primary) hypertension; R26.81 Unsteadiness on feet; Y83.8 Other surgical procedures as the cause of abnormal reaction of the patient, or of later complication, without mention of misadventure at the time of the procedure | CPT/HCPCS: 99213 ==

== ENCOUNTER 2024-05-28 06:13 | Inpatient (IN) | payer MEDICARE, OTHER, SELFPAY ==
[2024-05-23 10:25] VITALS: BMI 21.8
[2024-05-23 10:43] LABS: Hemoglobin 9.6 g/dL (12.0-16.0); Mean Corpuscular Hgb 26.2 pg (27.0-31.0); Mean Platelet Volume 9.3 fL (7.4-10.4); Platelet Count 434 10^3/uL (130-400); Red Blood Cell Count 3.66 10^6/uL (4.20-5.40); Red Cell Dist. Width 19.1 % (11.5-14.5); White Blood Cell Count 14.3 10^3/uL (4.8-10.8)
[2024-05-23 10:51] LABS: INR 1.02; PT 13.2 Sec (11.4-14.6)
[2024-05-23 11:19] LABS: ALT (SGPT) 20 U/L (0-35); AST (SGOT) 22 U/L (14-36); Albumin 4.1 g/dl (3.5-5.0); Alkaline Phosphatase 45 U/L (38-126); Blood Urea Nitrogen 42 mg/dl (7-17); Calcium 9.2 mg/dl (8.4-10.2); Carbon Dioxide 23 mmol/L (22-30); Chloride 106 mmol/L (98-107); Estimated Creatinine Clearance 18 ml/min; Glucose 113 mg/dl (70-99); Potassium 5.3 mmol/L (3.5-5.1); Sodium 144 mmol/L (135-145); Total Bilirubin 0.4 mg/dl (0.2-1.3); Total Protein 6.3 g/dl (6.3-8.2); eGFR 36.19
[2024-05-23 12:22] LABS: Glycohemoglobin (HgbA1c) 7.2 % (4.0-5.6)
--- NOTE | 2024-05-27 08:12 | PTCARENOTE ---
Abnormal lab work on 05/23/24: Potassium 5.3, Creatinine 1.4, A1C 7.2. Dr. Nair aware. BMP ordered day of surgery.
--- NOTE | 2024-05-27 08:13 | PTCARENOTE ---
Abnormal lab work on 05/23/24: Potassium 5.3, Creatinine 1.4, A1C 7.2. Justine at Dr. Patel's office and Xiomara at Dr. Ariza's office aware.
[2024-05-28] VITALS (17 sets, daily range): BP systolic 129–164; BP diastolic 43–85; BMI 21.8
[2024-05-28 07:14] LABS: Glucose - Point of Care 111 mg/dl (70-99)
[2024-05-28] MEDS: ENTEREG 12 MG PO (07:17)
[2024-05-28] MEDS: TYLENOL 1000 MG PO (07:17)
[2024-05-28] MEDS: Pyridium 200 MG PO (07:17)
[2024-05-28] MEDS: HEPARIN 5000 UNITS SC (07:17)
[2024-05-28 07:45] LABS: Blood Urea Nitrogen 40 mg/dl (7-17); Calcium 9.4 mg/dl (8.4-10.2); Carbon Dioxide 21 mmol/L (22-30); Chloride 102 mmol/L (98-107); Estimated Creatinine Clearance 22 ml/min; Glucose 113 mg/dl (70-99); Potassium 4.5 mmol/L (3.5-5.1); Sodium 143 mmol/L (135-145); eGFR 48.03
--- NOTE | 2024-05-28 11:11 | W.IMMPOSTOP ---
Surgical Immed Post Op Note
-
Colorectal Surgeon: Alen Ariza MD
Urogynecologist: Nicolas Rockwell MD
Pre-op Diagnosis: Pelvic floor prolapse
Post-op Diagnosis: Same
Procedure Performed: Robotic ventral mesh rectopexy and robotic mesh sacrocolpopexy; posterior colporrhaphy/perineoplasty
Anesthesia Type: GET
Specimen / Cultures: None
Estimated Blood Loss: 15cc
Complications: None
Operative Findings: Rectal and vaginal prolapse; rectocele
Patient's daughter updated.
[2024-05-28] MEDS: TYLENOL PO (12:00)
[2024-05-28] MEDS: DILAUDID 0.25 MG IV (12:19)
[2024-05-28 12:26] LABS: Glucose - Point of Care 197 mg/dl (70-99)
[2024-05-28] MEDS: NOVOLOG vial 2 UNITS SC (12:43)
[2024-05-28] MEDS: LR 1000 IV (14:29)
[2024-05-28 14:34] LABS: Glucose - Point of Care 122 mg/dl (70-99)
[2024-05-28] MEDS: ACULAR 0.5% EYE DROPS 1 DROP OPHTH (14:47)
--- NOTE | 2024-05-28 15:46 | PTCARENOTE ---
Patient received from PACU in bed; IVF infusing; Surgical site assessed with [employer], six laparoscopic sites open to air with glue; Patient states pain is mild but tolerable; Patient denies nausea/vomiting at this time; Patient on room air with
oxygen saturation at 96%; Daughter at bedside; Call conte within reach; Bed in lowest position, wheels locked; Assessment ongoing
[2024-05-28] MEDS: FLAGYL 500 MG 100 IV (15:55)
[2024-05-28] MEDS: TYLENOL 650 MG PO ×2 (15:55→21:44)
[2024-05-28 17:18] LABS: Glucose - Point of Care 101 mg/dl (70-99)
[2024-05-28] MEDS: SYMBICORT 80/4.5 MCG INHALER 2 PUFF INH (20:15)
[2024-05-28] MEDS: ALDACTONE 25 MG PO (21:43)
[2024-05-28] MEDS: AMBIEN 10 MG PO (21:45)
[2024-05-29] MEDS: FLAGYL 500 MG 100 IV (00:33)
[2024-05-29] MEDS: TYLENOL PO (00:37)
[2024-05-29 03:30] VITALS: BP 130/54
[2024-05-29] MEDS: TYLENOL 650 MG PO ×5 (04:56→21:45)
[2024-05-29] MEDS: LR 1000 IV ×2 (04:57→16:15)
[2024-05-29 06:00] VITALS: BMI 21.8
[2024-05-29 06:09] LABS: % Basophils 0.2 % (0-2); % Eosinophils 0.1 % (0-6); % Immature Granulocytes 1.2 % (0-0.5); % Lymphocytes 4.8 % (20.5-51.1); % Monocytes 11.1 % (1.7-9.3); % Neutrophils 82.6 % (42.2-75.2); Absolute Immature Granulocytes 0.2 10^3/uL (0-0.05); Absolute Lymphocytes 0.7 10^3/uL (1.2-3.4); Absolute Monocytes 1.7 10^3/uL (0.1-0.6); Absolute Neutrophils 12.8 10^3/uL (1.4-6.5); Hematocrit 24.2 % (37.0-47.0); Hemoglobin 8.2 g/dL (12.0-16.0); Mean Corp Hgb Conc. 33.9 g/dL (33.0-37.0); Mean Corpuscular Hgb 26.5 pg (27.0-31.0); Mean Corpuscular Volume 78.3 fL (81.0-99.0); Mean Platelet Volume 9.4 fL (7.4-10.4); Nucleated Red Blood Cells % 0 %; Platelet Count 336 10^3/uL (130-400); Red Blood Cell Count 3.09 10^6/uL (4.20-5.40); Red Cell Dist. Width 18.4 % (11.5-14.5); White Blood Cell Count 15.4 10^3/uL (4.8-10.8)
[2024-05-29 06:14] LABS: Blood Urea Nitrogen 30 mg/dl (7-17); Calcium 8.1 mg/dl (8.4-10.2); Carbon Dioxide 22 mmol/L (22-30); Chloride 103 mmol/L (98-107); Estimated Creatinine Clearance 25 ml/min; Glucose 125 mg/dl (70-99); Potassium 4.5 mmol/L (3.5-5.1); Sodium 138 mmol/L (135-145); eGFR 53.85
[2024-05-29 07:09] VITALS: BP 133/52
[2024-05-29 07:43] LABS: Glucose - Point of Care 125 mg/dl (70-99)
[2024-05-29] MEDS: SYMBICORT 80/4.5 MCG INHALER 2 PUFF INH ×2 (07:55→20:08)
--- NOTE | 2024-05-29 08:50 | W.PN.CRS1 ---
Today's Communication / Plan
-
repeat h/h
DM diet
OOB
Assessment/Plan
-
POD#1 Robotic ventral mesh rectopexy and robotic mesh sacrocolpopexy; posterior colporrhaphy/perineoplasty
-Vitals normal.
-Hgb 8.2, likely due to dilutional anemia. Will repeat at noon.
-DVT prophylaxis: TEDS/SCDS in place, repeat h/h before starting Lovenox
-OOB with PT
-Continue aldana until AM
-Advance diet to a DM regular diet
-Pain control: Tylenol standing, Dilaudid PRN
-Continue insulin sliding scale, holding on oral DM med for now
-Anticipate discharge tomorrow if tolerates a diet
-OR pathology pending
Subjective Data
Procedure
05/28- Robotic ventral mesh rectopexy and robotic mesh sacrocolpopexy; posterior colporrhaphy/perineoplasty
Subjective Data
Date of Service: May 29, 2024
Patient states she has no pain. She is a little hungry. She has no nausea or vomiting. She overall feels well.
Objective Data
-
Vital Signs
Temp Pulse Resp BP Pulse Ox
98.7 F 76 16 133/52 95
05/29/24 07:09 05/29/24 07:59 05/29/24 07:59 05/29/24 07:09 05/29/24 07:59
Intake & Output
05/28/24 05/29/24 05/30/24
06:59 06:59 06:59
Intake Total 750 / 750
Output Total 1375 / 1375
Balance -625 / -625
Intake:
Oral fluids 200 / 200
IV fluids (Total) 450 / 450
Normosal 150 / 150
IV piggybacks 100 / 100
Output:
Urine, Aldana 1375 / 1375
Lab Results
05/29/24 04:56
Physical Exam
-
General: No Acute Distress and AOx3
Abdomen: Soft, Non Distended and Non Tender
Skin: Warm and Dry
Incision: Clear, Dry, Intact
[2024-05-29] MEDS: LASIX 40 MG PO (09:14)
[2024-05-29] MEDS: ENTEREG 12 MG PO ×2 (09:14→21:45)
[2024-05-29] MEDS: NORVASC 5 MG PO (09:14)
[2024-05-29] MEDS: ALDACTONE 25 MG PO ×2 (09:14→21:45)
[2024-05-29] MEDS: PROTONIX 40 MG PO (09:14)
[2024-05-29] MEDS: APRESOLINE 25 MG PO (09:14)
[2024-05-29] MEDS: NEURONTIN 100 MG PO (09:14)
[2024-05-29] MEDS: ENTOCORT EC 3 MG PO (09:15)
[2024-05-29] MEDS: ZYLOPRIM 100 MG PO (09:15)
[2024-05-29 09:53] VITALS: BP 136/74
--- NOTE | 2024-05-29 10:28 | W.PN.GYN ---
Addendum entered and electronically signed by Nicolas Rockwell MD 06/03/24 14:09:
Clarification: acute blood loss anemia due to surgery
Original Note:
Today's Communication / Plan
-
strict I/O
Physician Note
-
Assessment and Plan:
89 yo woman POD 1 s/p robotic sacrocolpopexy and rectopexy, posteiror colporrhaphy, cystoscopy: patient is meeting postoperative milestones. She has blood loss anemia and making normal progress postop.
1. Postoperative care:
-no vaginal bleeding, no vaginal packing was placed
-normal Cr with normal UOP
-Diet: per colorectal surgery recommendations
-DVTppx: ambulation and scds
-Remove aldana on POD 2
2. Blood loss anemia
-no evidence of acute postoperative bleeding
-repeat CBC daily
3. Dispo:
-plan for D/c home on POD2 if patient continues to meet postoperative milestones
-plan for PT consult
Subjective:
pain well controlled. has not ambulated. denies nausea or vomitting overnight. denies fevers/chills, chest pain, sob, leg pain
Objective:
Intake and Output
05/27/24 05/28/24 05/29/24 05/30/24
06:59 06:59 06:59 06:59
Intake Total 750 / 750
Output Total 1375 / 1375 125 / 125
Balance -625 / -625 -125 / -125
Intake:
Oral fluids 200 / 200
IV fluids (Total) 450 / 450
Normosal 150 / 150
IV piggybacks 100 / 100
Output:
Urine, Aldana 1375 / 1375 125 / 125
Vital Signs
Temp Pulse Resp BP Pulse Ox
98.7 F 76 16 133/52 95
05/29/24 07:09 05/29/24 07:59 05/29/24 07:59 05/29/24 09:14 05/29/24 08:00
Lab Results
05/29/24 04:56
Exam:
Gu: minimal spotting on pad, aldana catheter with normal clear yellow urine
--- NOTE | 2024-05-29 11:23 | CM ---
Reviewed the chart notes and spoke with the patient at the bedside. The patient resides alone in independent living at [facility]. The patient has private duty help 9 hours daily through [employer]. The patient has a rolling walker,
wheelchair, shower chair, and shower rail. The patient has had [facility] in the past and is current with [facility] in the past. The patient has been to [facility]. The patient confirmed her pharmacy of choice is [facility]. PT
recommending continuing with [facility] at discharge. CM continues to be available to patient/family and is monitoring medical plan for needs at discharge.
Plan: Discharge back to apartment when medically stable and continue with [facility] as appropriate.
[2024-05-29 11:39] VITALS: BP 134/43
[2024-05-29 11:55] LABS: Glucose - Point of Care 311 mg/dl (70-99)
[2024-05-29 12:03] LABS: Hemoglobin 8.3 g/dL (12.0-16.0)
[2024-05-29] MEDS: NOVOLOG FLEXPEN-LOW RESISTANCE 4 UNITS SC (12:15)
--- NOTE | 2024-05-29 14:04 | PN.CDI ---
CDI
- -
CDI:
Physician Documentation Request
Admit Date: 05/28/24 06:13
Dear Doctor Moiz
05/29 progress note states 'Blood loss anemia'
Please clarify which of the following accurately represents the acuity of the blood loss anemia:
____ Acute
____ Other
Use of terms such as suspected, likely, concern for, or probable (associated with a specific diagnosis that is being evaluated, monitored, or treated as if it exists) are acceptable and can be coded in the inpatient setting, when documented at the
time of discharge.
Thank you,
Shruthi Marques RN, BSN
CDI Specialist
tiger text
Please use your independent medical judgment in providing your response.
[2024-05-29 15:45] VITALS: BP 132/42
[2024-05-29] MEDS: NON-FORMULARY ITEM PO (16:15)
[2024-05-29 16:52] LABS: Glucose - Point of Care 163 mg/dl (70-99)
[2024-05-29] MEDS: NOVOLOG FLEXPEN-LOW RESISTANCE 1 UNITS SC (17:28)
[2024-05-29] MEDS: AMBIEN 10 MG PO (21:46)
[2024-05-29 21:54] LABS: Glucose - Point of Care 164 mg/dl (70-99)
[2024-05-29 23:39] VITALS: BP 123/52
[2024-05-30] MEDS: TYLENOL PO (01:43)
[2024-05-30 05:14] VITALS: BMI 21.5
[2024-05-30] MEDS: TYLENOL 650 MG PO ×5 (05:34→19:47)
[2024-05-30] MEDS: SYMBICORT 80/4.5 MCG INHALER INH (08:04)
[2024-05-30 08:09] LABS: Glucose - Point of Care 191 mg/dl (70-99)
[2024-05-30 08:10] LABS: % Basophils 0.5 % (0-2); % Eosinophils 4.5 % (0-6); % Immature Granulocytes 1.1 % (0-0.5); % Lymphocytes 11.2 % (20.5-51.1); % Monocytes 10.2 % (1.7-9.3); % Neutrophils 72.5 % (42.2-75.2); Absolute Basophils 0.1 10^3/uL (0-0.2); Absolute Eosinophils 0.6 10^3/uL (0-0.7); Absolute Immature Granulocytes 0.1 10^3/uL (0-0.05); Absolute Lymphocytes 1.4 10^3/uL (1.2-3.4); Absolute Monocytes 1.3 10^3/uL (0.1-0.6); Absolute Neutrophils 8.9 10^3/uL (1.4-6.5); Hematocrit 26.7 % (37.0-47.0); Hemoglobin 8.4 g/dL (12.0-16.0); Mean Corp Hgb Conc. 31.5 g/dL (33.0-37.0); Mean Corpuscular Hgb 26.5 pg (27.0-31.0); Mean Corpuscular Volume 84.2 fL (81.0-99.0); Mean Platelet Volume 9.6 fL (7.4-10.4); Nucleated Red Blood Cells % 0 %; Platelet Count 315 10^3/uL (130-400); Red Blood Cell Count 3.17 10^6/uL (4.20-5.40); Red Cell Dist. Width 19.1 % (11.5-14.5); White Blood Cell Count 12.3 10^3/uL (4.8-10.8)
[2024-05-30 08:56] VITALS: BP 126/46
[2024-05-30] MEDS: NOVOLOG FLEXPEN-LOW RESISTANCE 1 UNITS SC (10:53)
[2024-05-30] MEDS: ALDACTONE 25 MG PO ×2 (10:55→19:47)
[2024-05-30] MEDS: NORVASC 5 MG PO (10:55)
[2024-05-30] MEDS: NON-FORMULARY ITEM 2 CAP PO (10:55)
[2024-05-30] MEDS: ENTOCORT EC 3 MG PO (10:56)
[2024-05-30] MEDS: PROTONIX 40 MG PO (10:57)
[2024-05-30] MEDS: ZYLOPRIM 100 MG PO (10:57)
[2024-05-30] MEDS: ENTEREG 12 MG PO ×2 (10:57→19:47)
[2024-05-30] MEDS: LASIX 40 MG PO (10:57)
[2024-05-30] MEDS: NEURONTIN 100 MG PO (10:58)
[2024-05-30] MEDS: APRESOLINE 25 MG PO (10:58)
--- NOTE | 2024-05-30 11:06 | CM ---
Reviewed the chart notes and spoke with the patient at the bedside. The patient feels that she can not return to her apartment at this time. Patient requested referral be sent to [facility]. Referral and [facility] sent via [facility] to [facility].
CM continues to be available to patient/family and is monitoring medical plan for needs at discharge.
Plan: Discharge to SNF once bed secured. No precert required.
[2024-05-30 12:14] LABS: Glucose - Point of Care 139 mg/dl (70-99)
[2024-05-30] MEDS: NOVOLOG FLEXPEN-LOW RESISTANCE SC (12:30)
--- NOTE | 2024-05-30 12:30 | W.PN.CRS1 ---
Today's Communication / Plan
-
lovenox
dispo planning
Assessment/Plan
-
POD#2 Robotic ventral mesh rectopexy and robotic mesh sacrocolpopexy; posterior colporrhaphy/perineoplasty
-Vitals normal.
-Hgb 8.4, likely due to dilutional anemia.
-DVT prophylaxis: TEDS/SCDS in place, start Lovenox
-OOB with PT
-Post void residual ordered
-Continue a DM regular diet
-Pain control: Tylenol standing, Dilaudid PRN
-Continue insulin sliding scale, holding on oral DM med for now
-Anticipate discharge tomorrow, patient deciding between home and SNF
-OR pathology pending
Subjective Data
Procedure
05/28- Robotic ventral mesh rectopexy and robotic mesh sacrocolpopexy; posterior colporrhaphy/perineoplasty
Subjective Data
Date of Service: May 30, 2024
Patient states she is having some leakage from her rectum postoperatively. She denies pain. Her Burkett is removed but she states she has had some incontinence.
Objective Data
-
Vital Signs
Temp Pulse Resp BP Pulse Ox
98.3 F 79 16 126/46 95
05/30/24 08:56 05/30/24 08:56 05/30/24 08:56 05/30/24 10:58 05/30/24 08:56
Intake & Output
05/29/24 05/30/24 05/31/24
06:59 06:59 06:59
Intake Total 750 / 750 1400 / 1400
Output Total 1375 / 1375 1550 / 1550
Balance -625 / -625 -150 / -150
Intake:
Oral fluids 200 / 200 1400 / 1400
IV fluids (Total) 450 / 450
Normosal 150 / 150
IV piggybacks 100 / 100
Output:
Urine, Burkett 1375 / 1375 1550 / 1550
Lab Results
05/30/24 07:58
05/29/24 04:56
Physical Exam
-
General: No Acute Distress and AOx3
Abdomen: Soft, Non Distended and Non Tender
Skin: Warm and Dry
Incision: Clear, Dry, Intact
[2024-05-30 15:37] VITALS: BP 125/50
[2024-05-30 15:38] LABS: Glucose - Point of Care 299 mg/dl (70-99)
[2024-05-30 16:19] VITALS: BP 125/50
[2024-05-30] MEDS: LOVENOX 30 MG SC (17:38)
[2024-05-30] MEDS: NOVOLOG FLEXPEN-LOW RESISTANCE 3 UNITS SC (17:39)
[2024-05-30] MEDS: SYMBICORT 80/4.5 MCG INHALER 2 PUFF INH (19:35)
[2024-05-30] MEDS: AMBIEN 10 MG PO (21:12)
[2024-05-30 21:55] LABS: Glucose - Point of Care 166 mg/dl (70-99)
[2024-05-30 23:33] VITALS: BP 142/61
[2024-05-31] MEDS: TYLENOL PO ×2 (00:29→04:49)
[2024-05-31 06:00] VITALS: BMI 21.3
[2024-05-31 07:40] VITALS: BP 153/63
[2024-05-31] MEDS: SYMBICORT 80/4.5 MCG INHALER 2 PUFF INH ×2 (07:54→17:59)
[2024-05-31 08:09] LABS: Glucose - Point of Care 122 mg/dl (70-99)
[2024-05-31] MEDS: NON-FORMULARY ITEM 2 CAP PO (08:17)
[2024-05-31] MEDS: NOVOLOG FLEXPEN-LOW RESISTANCE SC (08:17)
[2024-05-31] MEDS: TYLENOL 650 MG PO ×4 (08:18→19:53)
[2024-05-31] MEDS: ENTOCORT EC 3 MG PO (08:23)
[2024-05-31] MEDS: NORVASC 5 MG PO (08:24)
[2024-05-31] MEDS: ALDACTONE 25 MG PO ×2 (08:25→19:53)
[2024-05-31] MEDS: APRESOLINE 25 MG PO (08:25)
[2024-05-31] MEDS: PROTONIX 40 MG PO (08:25)
[2024-05-31] MEDS: LASIX 40 MG PO (08:25)
[2024-05-31] MEDS: ZYLOPRIM 100 MG PO (08:26)
[2024-05-31] MEDS: ENTEREG 12 MG PO ×2 (08:27→19:53)
[2024-05-31] MEDS: NEURONTIN PO (08:27)
--- NOTE | 2024-05-31 12:36 | W.PN.GS2 ---
Today's Communication / Plan
-
dispo planning
Assessment / Plan
-
89 yo female who is POD #3 robotic ventral mesh rectopexy and robotic mesh sacrocolpopexy; posterior colporrhaphy/perineoplasty
AFVSS
Tolerating diet with +flatus/stool
Voiding with PVR of 74ml
--Clear for d/c from CRS standpoint
--Continue diabetic diet and home meds
--OOB/Ambulate
--CM following for ?placement vs home with home health. Patient would prefer a rehab stay. PT following
Subjective Data
-
Date of Service: May 31, 2024
Patient seen and examined at bedside with Dr. Wright. Denies n/v. Tolerating diet. Feels uncomfortable going home as she feels she will need more assistance. Voiding frequently but feels she is emptying her bladder. Passing flatus/stools
Objective Data
-
Intake and Output
05/30/24 05/31/24 06/01/24
06:59 06:59 06:59
Intake Total 1400 / 1400 960 / 960
Output Total 1550 / 1550
Balance -150 / -150 960 / 960
Intake:
Oral fluids 1400 / 1400 960 / 960
Output:
Urine, Burkett 1550 / 1550
Other:
Number of approximated MODERATE 2
amounts of urine
Vital Signs
Temp Pulse Resp BP Pulse Ox
98.1 F 71 14 153/63 96
05/31/24 07:40 05/31/24 07:59 05/31/24 07:59 05/31/24 07:40 05/31/24 08:30
Lab Results
05/30/24 07:58
05/29/24 04:56
Calcium 8.1 mg/dl (8.4-10.2) L 05/29/24 04:56
Total Bilirubin 0.4 mg/dl (0.2-1.3) 05/23/24 10:17
AST 22 U/L (14-36) 05/23/24 10:17
ALT 20 U/L (0-35) 05/23/24 10:17
Alkaline Phosphatase 45 U/L (38-126) 05/23/24 10:17
Total Protein 6.3 g/dl (6.3-8.2) 05/23/24 10:17
Albumin 4.1 g/dl (3.5-5.0) 05/23/24 10:17
Physical Exam
-
NAD
ABD soft, nt, nd
Incisins clear, dry with intact glue and no erythema
[2024-05-31 13:40] LABS: Glucose - Point of Care 243 mg/dl (70-99)
[2024-05-31] MEDS: NOVOLOG FLEXPEN-LOW RESISTANCE 2 UNITS SC (13:57)
[2024-05-31 15:50] VITALS: BP 147/53
[2024-05-31 17:06] LABS: Glucose - Point of Care 334 mg/dl (70-99)
[2024-05-31] MEDS: LOVENOX 30 MG SC (17:44)
[2024-05-31] MEDS: NOVOLOG FLEXPEN-LOW RESISTANCE 4 UNITS SC (17:45)
--- NOTE | 2024-05-31 18:13 | PTCARENOTE ---
pt refused to get OOB today
[2024-05-31] MEDS: NEURONTIN 300 MG PO (21:15)
[2024-05-31] MEDS: AMBIEN 10 MG PO (21:15)
[2024-05-31 21:31] LABS: Glucose - Point of Care 250 mg/dl (70-99)
[2024-05-31 23:09] VITALS: BP 131/51
[2024-06-01] MEDS: TYLENOL PO ×2 (01:08→04:43)
[2024-06-01 06:12] VITALS: BMI 20.6
[2024-06-01 07:45] VITALS: BP 151/60
[2024-06-01 07:59] LABS: Glucose - Point of Care 129 mg/dl (70-99)
[2024-06-01] MEDS: SYMBICORT 80/4.5 MCG INHALER 2 PUFF INH ×2 (08:01→17:54)
[2024-06-01] MEDS: NOVOLOG FLEXPEN-LOW RESISTANCE SC (08:23)
[2024-06-01] MEDS: LASIX 40 MG PO (08:24)
[2024-06-01] MEDS: ENTOCORT EC 3 MG PO (08:24)
[2024-06-01] MEDS: PROTONIX 40 MG PO (08:24)
[2024-06-01] MEDS: ZYLOPRIM 100 MG PO (08:24)
[2024-06-01] MEDS: ENTEREG 12 MG PO ×2 (08:24→20:58)
[2024-06-01] MEDS: ALDACTONE 25 MG PO ×2 (08:24→20:58)
[2024-06-01] MEDS: TYLENOL 650 MG PO ×4 (08:24→20:58)
[2024-06-01] MEDS: APRESOLINE 25 MG PO (08:24)
[2024-06-01] MEDS: NORVASC 5 MG PO (08:25)
[2024-06-01] MEDS: NON-FORMULARY ITEM 2 CAP PO (08:25)
--- NOTE | 2024-06-01 09:22 | W.PN.GS2 ---
Today's Communication / Plan
-
dispo planning
Assessment / Plan
-
89 yo female who is POD #4 robotic ventral mesh rectopexy and robotic mesh sacrocolpopexy; posterior colporrhaphy/perineoplasty
AFVSS
Tolerating diet
--Clear for d/c from CRS standpoint, awaiting placement
--Continue diabetic diet and home meds
--OOB/Ambulate
--analgesics prn
--Add miralax prn if no bm
Subjective Data
-
Date of Service: June 01, 2024
Patient seen and examined at bedside with Dr Wright. Notes she has been voiding well. Denies n/v. Passing flatus, but no stool over the last day. Reports difficulty ambulating and concerns about going home alone.
Objective Data
-
Intake and Output
05/31/24 06/01/24 06/02/24
06:59 06:59 06:59
Intake Total 960 / 960 960 / 960
Balance 960 / 960 960 / 960
Intake:
Oral fluids 960 / 960 960 / 960
Other:
Number of approximated SMALL 1
amounts of urine
Number of approximated MODERATE 2 1
amounts of urine
Vital Signs
Temp Pulse Resp BP Pulse Ox
97.9 F 68 16 151/60 99
06/01/24 07:45 06/01/24 08:06 06/01/24 08:06 06/01/24 07:45 06/01/24 08:06
Lab Results
05/30/24 07:58
05/29/24 04:56
Calcium 8.1 mg/dl (8.4-10.2) L 05/29/24 04:56
Total Bilirubin 0.4 mg/dl (0.2-1.3) 05/23/24 10:17
AST 22 U/L (14-36) 05/23/24 10:17
ALT 20 U/L (0-35) 05/23/24 10:17
Alkaline Phosphatase 45 U/L (38-126) 05/23/24 10:17
Total Protein 6.3 g/dl (6.3-8.2) 05/23/24 10:17
Albumin 4.1 g/dl (3.5-5.0) 05/23/24 10:17
Physical Exam
-
NAD
ABD soft, nt, nd
Incisins clear, dry with intact glue and no erythema
[2024-06-01 12:06] LABS: Glucose - Point of Care 207 mg/dl (70-99)
[2024-06-01] MEDS: NOVOLOG FLEXPEN-LOW RESISTANCE 2 UNITS SC (12:40)
[2024-06-01 15:39] VITALS: BP 142/62
--- NOTE | 2024-06-01 16:18 | CM ---
Chart reviewed
[facility] - declined - no beds
Discussed with pt - declined alternate options
CM will f/u with [facility] in AM
Plan - discharge to SNF when bed obtained
[2024-06-01 16:52] LABS: Glucose - Point of Care 329 mg/dl (70-99)
[2024-06-01] MEDS: LOVENOX 30 MG SC (17:01)
[2024-06-01] MEDS: NOVOLOG FLEXPEN-LOW RESISTANCE 4 UNITS SC (17:01)
[2024-06-01 21:11] VITALS: BP 144/57
[2024-06-01] MEDS: AMBIEN 10 MG PO (21:15)
[2024-06-01] MEDS: NEURONTIN 300 MG PO (21:15)
[2024-06-01 21:19] LABS: Glucose - Point of Care 270 mg/dl (70-99)
[2024-06-01 22:52] VITALS: BP 138/64
[2024-06-02] MEDS: TYLENOL PO (00:57)
[2024-06-02] MEDS: TYLENOL 650 MG PO ×3 (03:38→12:29)
[2024-06-02 05:30] VITALS: BMI 20.3
[2024-06-02] MEDS: SYMBICORT 80/4.5 MCG INHALER 2 PUFF INH (07:38)
[2024-06-02 07:58] LABS: Glucose - Point of Care 145 mg/dl (70-99)
[2024-06-02 08:00] VITALS: BP 144/57
[2024-06-02] MEDS: ENTEREG 12 MG PO (08:42)
[2024-06-02] MEDS: ENTOCORT EC 3 MG PO (08:43)
[2024-06-02] MEDS: PROTONIX 40 MG PO (08:43)
[2024-06-02] MEDS: NORVASC 5 MG PO (08:43)
[2024-06-02] MEDS: APRESOLINE 25 MG PO (08:43)
[2024-06-02] MEDS: ZYLOPRIM 100 MG PO (08:43)
[2024-06-02] MEDS: ALDACTONE 25 MG PO (08:43)
[2024-06-02] MEDS: NOVOLOG FLEXPEN-LOW RESISTANCE SC (08:44)
[2024-06-02] MEDS: LASIX 40 MG PO (08:44)
[2024-06-02] MEDS: NON-FORMULARY ITEM 2 CAP PO (08:45)
--- NOTE | 2024-06-02 11:03 | CM ---
Reviewed the chart notes and spoke with the patient at the bedside. IMM signed and placed on the chart. The patient has been accepted to [facility]. Patient will require a Covid test prior to discharge. Per patient, her daughter will be able to
transport. CM continues to be available to patient/family and is monitoring medical plan for needs at discharge.
Plan: Discharge to [facility]. No precert required.
Call report to: [phone]
Fax report to: [phone]
--- NOTE | 2024-06-02 11:06 | W.PN.CRS1 ---
Today's Communication / Plan
-
As below
Assessment/Plan
-
Patient is an 89-year-old female with PMH of HTN, DM, IBS, pancreatic insufficiency, asthma, septic arthritis of the right ankle, CKD who presents for elective surgery for pelvic organ prolapse
POD 5 ventral mesh rectopexy with sacrocolpopexy, perineoplasty
AFVSS
No labs today
�Okay for diabetic diet
� Continue pain control with Tylenol, Toradol, oxycodone, gabapentin; continue Entereg until DC
� Continue home medications
� Continue DVT PPx with Lovenox
� Encourage OOB/IS
� Appreciate urogyn
Dispo�okay for DC when bed available
Subjective Data
Procedure
05/28- Robotic ventral mesh rectopexy and robotic mesh sacrocolpopexy; posterior colporrhaphy/perineoplasty
Subjective Data
Date of Service: June 02, 2024
No overnight events.
Pain controlled.
Denies nausea/vomiting. Tolerating diet.
+flatus +BMs (small amount) +voiding
Objective Data
-
Vital Signs
Temp Pulse Resp BP Pulse Ox
98.3 F 76 16 144/57 97
06/02/24 08:00 06/02/24 08:44 06/02/24 08:00 06/02/24 08:44 06/02/24 08:00
Intake & Output
06/01/24 06/02/24 06/03/24
06:59 06:59 06:59
Intake Total 960 / 960 1140 / 1140
Balance 960 / 960 1140 / 1140
Intake:
Oral fluids 960 / 960 1140 / 1140
Other:
Number of approximated SMALL 1
amounts of urine
Number of approximated MODERATE 1 1
amounts of urine
Number of approximated LARGE 1
amounts of urine
How many times incontinent 2
MODERATE amount urine
Lab Results
05/30/24 07:58
05/29/24 04:56
Physical Exam
-
General: No Acute Distress and AOx3
HEENT: Grossly Normal
Abdomen: Soft, Distended (Minimally distended), Non Tender, No Guarding and No Rebound
Skin: Warm and Dry
Wound: No Signs of Infection, Dressing in Place (Dermabond) and No Skin Erythema
[2024-06-02 12:35] LABS: Glucose - Point of Care 186 mg/dl (70-99)
[2024-06-02] MEDS: NOVOLOG FLEXPEN-LOW RESISTANCE 1 UNITS SC (12:36)
[2024-06-02 13:20] LABS: COVID-19 Antigen Negative (Negative)
[2024-06-02 14:55] VITALS: BP 139/69
== END 2024-06-02 15:55 | DRG 330 ==
LOC: 2 SOUTH 06:13
PROVIDERS: Anesthesiology; Physician Assistant; Surgery; ADMITTING PHYSICIAN Surgery; ATTENDING PHYSICIAN Obstetrics & Gynecology; FAMILY PHYSICIAN Internal Medicine
PROC: 0WU Anatomical Regions, General, Supplement (ICD-10-PCS; 2024-05-28)
PROC: 0DUP4JZ Supplement Rectum with Synthetic Substitute, Percutaneous Endoscopic Approach (ICD-10-PCS; 2024-05-28)
PROC: 0TJB8ZZ Inspection of Bladder, Via Natural or Artificial Opening Endoscopic (ICD-10-PCS; 2024-05-28)
PROC: 0UQG7ZZ Repair Vagina, Via Natural or Artificial Opening (ICD-10-PCS; 2024-05-28)
PROC: 0DJD8ZZ Inspection of Lower Intestinal Tract, Via Natural or Artificial Opening Endoscopic (ICD-10-PCS; 2024-05-28)
PROC: 0DSP4ZZ Reposition Rectum, Percutaneous Endoscopic Approach (ICD-10-PCS; 2024-05-28)
PROC: 8E0W4CZ Robotic Assisted Procedure of Trunk Region, Percutaneous Endoscopic Approach (ICD-10-PCS; 2024-05-28)
PROC: 0USG4ZZ Reposition Vagina, Percutaneous Endoscopic Approach (ICD-10-PCS; 2024-05-28)
DX: K62.3 Rectal prolapse (principal); D62 Acute posthemorrhagic anemia; Q43.8 Other specified congenital malformations of intestine; N99.3 Prolapse of vaginal vault after hysterectomy; I10 Essential (primary) hypertension; E11.9 Type 2 diabetes mellitus without complications; M81.0 Age-related osteoporosis without current pathological fracture; J45.909 Unspecified asthma, uncomplicated; K58.9 Irritable bowel syndrome, unspecified; K86.89 Other specified diseases of pancreas; R15.9 Full incontinence of feces; Z11.52 Encounter for screening for COVID-19; Z90.710 Acquired absence of both cervix and uterus; Z79.899 Other long term (current) drug therapy; Z79.84 Long term (current) use of oral hypoglycemic drugs; Z88.0 Allergy status to penicillin; Z88.2 Allergy status to sulfonamides
CPT/HCPCS: 36415; 80048; 80053; 82962; 83036; 85014; 85018; 85025; 85027; 85610; 85730; 86850; 86900; 86901; 87811; 94640; 97110; 97163; 97530; C1763; C1781

== ENCOUNTER 2024-08-18 15:49 | Emergency (ER) | payer MEDICARE, OTHER, SELFPAY ==
[2024-08-18 15:58] VITALS: BP 124/55
--- NOTE | 2024-08-18 16:00 | ED.GENMED ---
ED Provider Triage
<Isaias Houston PA-C - Last Filed: 08/18/24 16:02>
-
Patient seen by provider in Triage?: Seen in Triage
Attestation: A medical screening examination has been initiated by a qualified medical provider. Based on the assessment performed at this time, it has been determined that an emergent medical condition may exist and the patient has been informed
that further medical evaluation and possible additional diagnostic testing may be needed.
HPI: 89-year-old female presenting to the ER with 1 day of persistent dry heaves with nausea and vomiting. Patient describes the vomitus to be mucousy. No upper respiratory-like symptoms, no chest pain, no coughing. Denies history of similar.
Currently minimal nausea. No other concerns. Labs and Zofran ordered. Patient brought for EKG.
GENERAL: Alert , in no apparent distress
EYE: No visual abnormalities.
NECK: Trachea midline
ENT: No visible abnormalities.
LUNGS: No acute respiratory distress
NEUROLOGICAL: Alert and oriented
SKIN: Skin intact. No visible changes.
MUSCULOSKELETAL: Moving extremities normally
PSYCH: Normal and appropriate interaction.
This is a medical evaluation conducted in person to initiate diagnostic evaluation and provide initial therapeutics. Please see further documentation by the treating clinician.
History of Present Illness
<Isaias Houtson PA-C - Last Filed: 08/18/24 16:02>
General
Chief Complaint: Abdominal Symptoms
Time Seen by Provider: 08/18/24 21:15
<MIKE Sosa - Last Filed: 08/19/24 00:21>
General
Source: patient and family (Daughter)
Exam Limitations: none
History of Present Illness
History of Present Illness:
This is a 89 year old female that comes in with c/o vomiting and diarrhea. States that she started on Sunday with vomiting and diarrhea. States that today she felt worse. States that she cant keep any food down but has been able to keep fluid down
today. However daughter states that she did vomit 5 times today and still has diarrhea. States that when she vomits there is a lot of Mucous and the phlegm is thick yellow. Denies any fever, chills, chest pain, SOB, abd pain, headache, dizziness,
urinary burning.
Past History
<Isaias Houston PA-C - Last Filed: 08/18/24 16:02>
Past History
ED Past Medical History: Asthma, NIDDM and Other (chronic anterior right ankle wound since 11/13, [facility])
ED Past Surgical History: Gynecological, Orthopedic (Right hip) and Tonsilectomy
Social History
Tobacco: Non-smoker
Alcohol: Daily
Drug: None
Personal:
Living: alone
<MIKE Sosa - Last Filed: 08/19/24 00:21>
Past History
ED Past Medical History: CAD, CHF, GERD, HTN, SC, Other (chronic anterior right ankle wound since 11/13, [facility], Back pain, Neuropathy, PNA, Colitis, IBS, Rectal prolapse, Urinary retention, Macular degeneration) and Other
(chronic neck pain, )
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
Social History
Alcohol: Occasional
Review of Systems
<MIKE Sosa - Last Filed: 08/19/24 00:21>
Review of Systems
All Other Systems: ROS reviewed and negative except as documented in HPI and ROS
Constitutional: Reports no symptoms; Denies fever or chills
EENT: Reports no symptoms
Respiratory: Reports no symptoms; Denies cough or trouble breathing
Cardiac: Reports no symptoms; Denies chest pain
ABD/GI: Reports nausea, vomiting and diarrhea; Denies abdominal pain
: Reports no symptoms; Denies dysuria, frequency or urgency
Musculoskeletal: Reports no symptoms
Skin: Reports no symptoms
Neurological: Reports no symptoms; Denies dizzy or headache
Psychiatric: Reports no symptoms
Phy Exam
<MIKE Sosa - Last Filed: 08/19/24 00:21>
General Physical Exam
General Presentation: no apparent distress
General age: appears stated age
General Skin: warm and dry
General Habitus: elderly
General Mental: alert
General Hydration: appears well hydrated
ENT Exam
ENT Exam: TM's normal, pharynx normal and neck supple
Eye Exam
Eye Exam: EOMI
Cardiovascular Exam
Cardiovascular Exam: regular rate/rhythm and normal peripheral pulses
Pulmonary Exam
Pulmonary Exam: lungs clear, no respiratory distress, no rales, chest non tender, no crackles, no rhonchi, no wheezing and no cough
Gastrointestinal Exam
Gastrointestinal Exam: normal bowel sounds, non tender, soft, no organomegaly, no pulsatile mass and non distended
Musculoskeletal Exam
Musculoskeletal Exam: full ROM and other (Slight Swelling right lower leg Patient states is normal. )
Skin Exam
Skin Exam: normal color, warm/dry, no rash, no petechia and other (Left lateral proximal lower leg open wound Skin tear. Negative for any drainage or redness. )
Psychiatric Exam
Psychiatric Exam: normal mood/affect
Course
<Isaias Houston PA-C - Last Filed: 08/18/24 16:02>
Orders/Labs/Results
Orders:
Orders
08/18/24 16:01
EKG- Treatment ONCE
08/18/24 16:03
Complete Blood Count/With Diff Urgent
Comprehensive Metabolic Panel Urgent
Troponin I Urgent
08/18/24 18:46
Ondansetron Orally Disint [Zofran Odt (Orally Disintegrating)] 4 mg PO NOW STA
08/18/24 19:28
Ondansetron Orally Disint [Zofran Odt (Orally Disintegrating)] 4 mg .ROUTE .STK-MED ONE
08/18/24 21:31
0.9% Sodium Chloride 500 ml [Nss] 500 ml IV BOLUS
Ondansetron Injectable [Zofran] 4 mg IV NOW STA
08/18/24 21:51
Gabapentin [Neurontin] 300 mg PO NOW STA
Abnormal Lab Results
08/18/24
16:03
Hct 35.4 L %
(37.0-47.0)
RDW 15.9 H %
(11.5-14.5)
Abs Immat Gran (auto) 0.1 H 10^3/uL
(0-0.05)
Absolute Neuts (auto) 8.0 H 10^3/uL
(1.4-6.5)
Absolute Lymphs (auto) 0.4 L 10^3/uL
(1.2-3.4)
Absolute Monos (auto) 1.0 H 10^3/uL
(0.1-0.6)
Immature Gran % 0.8 H %
(0-0.5)
Neutrophils % 82.8 H %
(42.2-75.2)
Lymphocytes % 4.5 L %
(20.5-51.1)
Monocytes % 10.2 H %
(1.7-9.3)
Carbon Dioxide 19 L mmol/L
(22-30)
BUN 30 H mg/dl
(7-17)
Glucose 109 H mg/dl
(70-99)
Calcium 8.3 L mg/dl
(8.4-10.2)
08/18/24 16:03
08/18/24 16:03
Vital Signs
Initial and Last Documented VS:
Initial Vital Signs
Temp Pulse Resp BP Pulse Ox
98.6 F 97 20 124/55 98
08/18/24 15:58 08/18/24 15:58 08/18/24 15:58 08/18/24 15:58 08/18/24 15:58
Last Documented Vital Signs
Temp Pulse Resp BP Pulse Ox
98.3 F 77 15 122/48 98
08/18/24 18:54 08/18/24 23:15 08/18/24 23:15 08/18/24 23:00 08/18/24 23:15
<MIKE Sosa - Last Filed: 08/19/24 00:21>
Orders/Labs/Results
Orders:
Orders
08/18/24 16:01
EKG- Treatment ONCE
08/18/24 16:03
Complete Blood Count/With Diff Urgent
Comprehensive Metabolic Panel Urgent
Troponin I Urgent
08/18/24 18:46
Ondansetron Orally Disint [Zofran Odt (Orally Disintegrating)] 4 mg PO NOW STA
08/18/24 19:28
Ondansetron Orally Disint [Zofran Odt (Orally Disintegrating)] 4 mg .ROUTE .STK-MED ONE
08/18/24 21:31
0.9% Sodium Chloride 500 ml [Nss] 500 ml IV BOLUS
Ondansetron Injectable [Zofran] 4 mg IV NOW STA
08/18/24 21:51
Gabapentin [Neurontin] 300 mg PO NOW STA
Abnormal Lab Results
08/18/24
16:03
Hct 35.4 L %
(37.0-47.0)
RDW 15.9 H %
(11.5-14.5)
Abs Immat Gran (auto) 0.1 H 10^3/uL
(0-0.05)
Absolute Neuts (auto) 8.0 H 10^3/uL
(1.4-6.5)
Absolute Lymphs (auto) 0.4 L 10^3/uL
(1.2-3.4)
Absolute Monos (auto) 1.0 H 10^3/uL
(0.1-0.6)
Immature Gran % 0.8 H %
(0-0.5)
Neutrophils % 82.8 H %
(42.2-75.2)
Lymphocytes % 4.5 L %
(20.5-51.1)
Monocytes % 10.2 H %
(1.7-9.3)
Carbon Dioxide 19 L mmol/L
(22-30)
BUN 30 H mg/dl
(7-17)
Glucose 109 H mg/dl
(70-99)
Calcium 8.3 L mg/dl
(8.4-10.2)
08/18/24 16:03
08/18/24 16:03
Carbon dioxide slightly low. Dehydration. Glucose nonfasting. Calcium very slightly elevated. Troponin 0.022
Vital Signs
Initial and Last Documented VS:
Initial Vital Signs
Temp Pulse Resp BP Pulse Ox
98.6 F 97 20 124/55 98
08/18/24 15:58 08/18/24 15:58 08/18/24 15:58 08/18/24 15:58 08/18/24 15:58
Last Documented Vital Signs
Temp Pulse Resp BP Pulse Ox
98.3 F 77 15 122/48 98
08/18/24 18:54 08/18/24 23:15 08/18/24 23:15 08/18/24 23:00 08/18/24 23:15
<Anthony H. DO Willy - Last Filed: 08/20/24 08:12>
Orders/Labs/Results
Orders:
Orders
08/18/24 16:01
EKG- Treatment ONCE
08/18/24 16:03
Complete Blood Count/With Diff Urgent
Comprehensive Metabolic Panel Urgent
Troponin I Urgent
08/18/24 18:46
Ondansetron Orally Disint [Zofran Odt (Orally Disintegrating)] 4 mg PO NOW STA
08/18/24 19:28
Ondansetron Orally Disint [Zofran Odt (Orally Disintegrating)] 4 mg .ROUTE .STK-MED ONE
08/18/24 21:31
0.9% Sodium Chloride 500 ml [Nss] 500 ml IV BOLUS
Ondansetron Injectable [Zofran] 4 mg IV NOW STA
08/18/24 21:51
Gabapentin [Neurontin] 300 mg PO NOW STA
Abnormal Lab Results
08/18/24
16:03
Hct 35.4 L %
(37.0-47.0)
RDW 15.9 H %
(11.5-14.5)
Abs Immat Gran (auto) 0.1 H 10^3/uL
(0-0.05)
Absolute Neuts (auto) 8.0 H 10^3/uL
(1.4-6.5)
Absolute Lymphs (auto) 0.4 L 10^3/uL
(1.2-3.4)
Absolute Monos (auto) 1.0 H 10^3/uL
(0.1-0.6)
Immature Gran % 0.8 H %
(0-0.5)
Neutrophils % 82.8 H %
(42.2-75.2)
Lymphocytes % 4.5 L %
(20.5-51.1)
Monocytes % 10.2 H %
(1.7-9.3)
Carbon Dioxide 19 L mmol/L
(22-30)
BUN 30 H mg/dl
(7-17)
Glucose 109 H mg/dl
(70-99)
Calcium 8.3 L mg/dl
(8.4-10.2)
08/18/24 16:03
08/18/24 16:03
Vital Signs
Initial and Last Documented VS:
Initial Vital Signs
Temp Pulse Resp BP Pulse Ox
98.6 F 97 20 124/55 98
08/18/24 15:58 08/18/24 15:58 08/18/24 15:58 08/18/24 15:58 08/18/24 15:58
Last Documented Vital Signs
Temp Pulse Resp BP Pulse Ox
98.3 F 77 15 122/48 98
08/18/24 18:54 08/18/24 23:15 08/18/24 23:15 08/18/24 23:00 08/18/24 23:15
<MIKE Sosa - Last Filed: 08/19/24 00:21>
MDM/Problems Addressed
Differential Diagnosis Includes:
Viral GI syndrome,
MDM/Problems Addressed:
This is a 89 year old female that comes in with c/o vomiting and diarrhea since Sunday. States that she is able to keep fluid down but no food today. Daughter states that her phlegm is thick yellow mucous.
Will check lab, Give IV fluids.
Back into see patient. Patient was feeling better. Patient able to sit on the edge of the bed and felt better. Patient is not walking at home and uses a wheelchair to get to the bathroom due to the right ankle Surgery. Will discharge home.
Chronic conditions affecting care:
NA
Acute Exacerbation and/or Progression of Chronic Illness:
NA
<MIKE Sosa - Last Filed: 08/19/24 00:21>
*Pulse Oximetry
Patient hypoxic: no
*EKG
Interpreted by ED Provider?: NA
Rate: EKG- N/A
*Felting Machine Operator Helper Interpretation
Rate: Felting Machine Operator Helper- N/A
*Critical Care Note
Total Time (30-74mins, 75-104mins- exclusive of procedures): Not Applicable
ED Attending Note
<Isaias Houston PA-C - Last Filed: 08/18/24 16:02>
-
Portions of this chart may have been created with voice recognition software.� Occasional wrong word or��sound alike� substitutions may have occurred due to the inherent limitations of voice recognition software.
<Anthony Aguilera DO - Last Filed: 08/20/24 08:12>
ED Attending Note
Patient seen and examined by attending physician: Yes
I performed the substantive portion of visit, reviewed & personally made and approve the management plan that is documented in note by myself or ANIYAH.: Yes
ED Attending Note:
I agree with Ingrid's note.
Patient with nausea vomiting. No significant abdominal pain
General: Awake, Alert, Oriented X3. No acute distress.
Vitals: unremarkable
Head: Atraumatic
Eyes: Pupils equal, EOMI
Throat: Airway intact, no exudates
Neck: Trachea midline
Abd: Soft, Nontender, No pulsatile mass
Neuro: Nonfocal
Skin: Warm, dry, no rash
Extremities: pulses equal b/l, no edema
Symptoms seem consistent with more of a gastroenteritis. If she feels better after treatment potentially discharge home. If not further workup.
Discharge Plan
Departure
Patient Disposition: Home (Routine Discharge)
Date of Disposition: 08/19/24
Time of Disposition: 00:14
Patient with high blood pressure during this ER visit?: No
Condition: Good
Covid-19: Not Applicable
Discharge Problem:
Nausea and vomiting, Diarrhea
Instructions: Diarrhea in teens and adults, Nausea and Vomiting, Adult (DC)
Prescriptions:
New
ondansetron 4 mg tablet,disintegrating
4 mg PO Q8H PRN (Reason: nausea and vomiting) Qty: 7 0RF
No Action
furosemide 40 mg tablet
40 mg PO DAILY
omeprazole 20 mg capsule,delayed release(DR/EC)
20 mg PO DAILY
allopurinol 100 mg tablet
100 mg PO DAILY
gabapentin 100 mg capsule
100 mg PO DAILY
Creon 36,000-114,000- 180,000 unit Capsule,Delayed Release(Dr/Ec)
2 cap PO DAILY
budesonide 3 mg Capsule,Delayed,Extend.Release
3 mg PO DAILY
amlodipine 5 mg Tablet
5 mg PO DAILY
gabapentin 100 mg Capsule
100 mg PO PRN PRN (Reason: Pain)
zolpidem [Ambien] 10 mg Tablet
10 mg PO HS
fluticasone propionate [Flonase Allergy Relief] 50 mcg/actuation Spicer,Suspension
2 spray INTRANASAL BID
Antacid Extra-Strength 300 mg (750 mg) tablet,chewable
1 tab PO Q4HPRN PRN (Reason: reflux)
spironolactone 25 mg tablet
25 mg PO BID
multivitamin with folic acid [Tab-A-Evgeny] 400 mcg tablet
1 tab PO DAILY
potassium chloride 20 mEq Tablet Extended Release
20 meq PO DAILY
acetaminophen 500 mg Tablet
1,000 mg PO Q8H PRN (Reason: mild pain, Temp >/=100.4)
loperamide 2 mg Capsule
2 mg PO DAILYPRN PRN (Reason: diarrhea) Qty: 30 0RF
Saccharomyces boulardii 250 mg Capsule
250 mg PO DAILY Qty: 30 0RF
hydralazine 25 mg Tablet
25 mg PO DAILY Qty: 90 0RF
glimepiride 2 mg Tablet
1 mg PO DAILY Qty: 90 0RF
famotidine 20 mg Tablet
20 mg PO HS PRN (Reason: Heartburn) Qty: 90 0RF
budesonide-formoterol [Symbicort] 80-4.5 mcg/actuation Hfa Aerosol Inhaler
2 puff INHALATION R BID Qty: 10.2 0RF
Referrals:
Laura Saez MD [Family Provider] - Follow up in 2-3 days
Activity Restrictions/Additional Instructions:
As discussed, your blood work shows that you were dehydrated. You have been given IV fluids here. A prescription for Zofran has been sent to your Pharmacy to help with any nausea. Please stay away form milk and milk products until the diarrhea
stops. Please increase your water intake to 8-8oz glasses daily. This will help keep the mucous thin so you can cough any up. Follow up with the family doctor in the next 2-3 days for recheck. IF YOU HAVE ANY OTHER CONCERNS PLEASE RETURN TO THE
EMERGENCY ROOM.
Interventions
Interventions:
*Risk Screen - Suicide Last Done: 08/18/24 21:35
*General Assessment Last Done: 08/18/24 15:58
*Neglect/Abuse Screening Last Done: 08/18/24 21:35
ED- Fall Risk Assessment Last Done: 08/19/24 00:20
*ED COVID-19 Vaccine History Last Done: 08/18/24 21:35
*Nursing Disposition Last Done: 08/19/24 00:20
ZF-Txbnwr-Saqrmngeie Assessment Last Done: 08/18/24 23:20
Discharge Date and Time
Discharge Date/Time: 08/19/24 00:20
Print Language: [id number]
[2024-08-18 16:40] LABS: ALT (SGPT) 21 U/L (0-35); AST (SGOT) 27 U/L (14-36); Albumin 4.2 g/dl (3.5-5.0); Alkaline Phosphatase 59 U/L (38-126); Blood Urea Nitrogen 30 mg/dl (7-17); Calcium 8.3 mg/dl (8.4-10.2); Carbon Dioxide 19 mmol/L (22-30); Chloride 102 mmol/L (98-107); Glucose 109 mg/dl (70-99); Potassium 4.7 mmol/L (3.5-5.1); Sodium 136 mmol/L (135-145); Total Bilirubin 0.4 mg/dl (0.2-1.3); Total Protein 6.4 g/dl (6.3-8.2); eGFR > 60.00
[2024-08-18 16:43] LABS: Troponin I 0.022 ng/ml
[2024-08-18 16:50] LABS: % Basophils 0.4 % (0-2); % Eosinophils 1.3 % (0-6); % Immature Granulocytes 0.8 % (0-0.5); % Lymphocytes 4.5 % (20.5-51.1); % Monocytes 10.2 % (1.7-9.3); % Neutrophils 82.8 % (42.2-75.2); Absolute Eosinophils 0.1 10^3/uL (0-0.7); Absolute Immature Granulocytes 0.1 10^3/uL (0-0.05); Absolute Lymphocytes 0.4 10^3/uL (1.2-3.4); Hematocrit 35.4 % (37.0-47.0); Hemoglobin 12.1 g/dL (12.0-16.0); Mean Corp Hgb Conc. 34.2 g/dL (33.0-37.0); Mean Corpuscular Hgb 27.8 pg (27.0-31.0); Mean Corpuscular Volume 81.2 fL (81.0-99.0); Mean Platelet Volume 10.1 fL (7.4-10.4); Nucleated Red Blood Cells % 0 %; Platelet Count 325 10^3/uL (130-400); Red Blood Cell Count 4.36 10^6/uL (4.20-5.40); Red Cell Dist. Width 15.9 % (11.5-14.5); White Blood Cell Count 9.7 10^3/uL (4.8-10.8)
[2024-08-18 18:54] VITALS: BP 128/58
[2024-08-18] MEDS: ZOFRAN ODT (ORALLY DISINTEGRATING) 4 MG PO (19:31)
[2024-08-18 19:47] LABS: Glucose - Point of Care 96 mg/dl (70-99)
[2024-08-18 21:34] VITALS: BMI 20.9
[2024-08-18 21:47] VITALS: BP 156/74
[2024-08-18] MEDS: NEURONTIN 300 MG PO (21:54)
[2024-08-18] MEDS: ZOFRAN 4 MG IV (21:55)
[2024-08-18] MEDS: NSS 500 IV (21:55)
[2024-08-18 22:00] VITALS: BP 119/52
[2024-08-18 23:00] VITALS: BP 122/48
== END 2024-08-19 00:20 | disposition home or self-care (01) ==
LOC: EMR 15:49
PROVIDERS: Physician Assistant Medical; EMERGENCY PHYSICIAN Emergency Medicine; FAMILY PHYSICIAN Internal Medicine
DX: R11.2 Nausea with vomiting, unspecified (principal); R19.7 Diarrhea, unspecified
CPT/HCPCS: 99284; 96374; 96361; 80053; 82962; 84484; 85025

== ENCOUNTER → 2024-09-04 12:55 | Outpatient (REF) | payer MEDICARE, OTHER, SELFPAY | LOC: WOUND 12:55 | PROVIDERS: ATTENDING PHYSICIAN Surgery; FAMILY PHYSICIAN Internal Medicine | DX: L97.811 Non-pressure chronic ulcer of other part of right lower leg limited to breakdown of skin (principal); L97.821 Non-pressure chronic ulcer of other part of left lower leg limited to breakdown of skin; I87.2 Venous insufficiency (chronic) (peripheral); R26.81 Unsteadiness on feet; E11.65 Type 2 diabetes mellitus with hyperglycemia | CPT/HCPCS: 97597; 99213 ==

== ENCOUNTER → 2024-09-11 10:26 | Outpatient (REF) | payer MEDICARE, OTHER, SELFPAY | LOC: WOUND 10:26 | PROVIDERS: ATTENDING PHYSICIAN Surgery; FAMILY PHYSICIAN Internal Medicine | DX: L97.811 Non-pressure chronic ulcer of other part of right lower leg limited to breakdown of skin (principal); L97.821 Non-pressure chronic ulcer of other part of left lower leg limited to breakdown of skin; I87.2 Venous insufficiency (chronic) (peripheral); R26.81 Unsteadiness on feet; E11.65 Type 2 diabetes mellitus with hyperglycemia | CPT/HCPCS: 11042 ==

== ENCOUNTER → 2024-09-19 11:13 | Outpatient (REF) | payer MEDICARE, OTHER, SELFPAY | LOC: RAD 11:13 | PROVIDERS: ATTENDING PHYSICIAN Nurse Practitioner Family; FAMILY PHYSICIAN Internal Medicine | DX: M54.50 Low back pain, unspecified (principal) | CPT/HCPCS: 72110 ==

== ENCOUNTER → 2024-09-25 10:21 | Outpatient (REF) | payer MEDICARE, OTHER, SELFPAY | LOC: WOUND 10:21 | PROVIDERS: ATTENDING PHYSICIAN Surgery; FAMILY PHYSICIAN Internal Medicine | DX: L97.811 Non-pressure chronic ulcer of other part of right lower leg limited to breakdown of skin (principal); L97.821 Non-pressure chronic ulcer of other part of left lower leg limited to breakdown of skin; I87.2 Venous insufficiency (chronic) (peripheral); R26.81 Unsteadiness on feet; E11.65 Type 2 diabetes mellitus with hyperglycemia | CPT/HCPCS: 99213 ==

== ENCOUNTER → 2024-10-13 11:06 | Outpatient (REF) | payer MEDICARE, OTHER, SELFPAY | LOC: WOUND 11:06 | PROVIDERS: ATTENDING PHYSICIAN Surgery; FAMILY PHYSICIAN Internal Medicine | DX: L97.811 Non-pressure chronic ulcer of other part of right lower leg limited to breakdown of skin (principal); L97.821 Non-pressure chronic ulcer of other part of left lower leg limited to breakdown of skin; I87.2 Venous insufficiency (chronic) (peripheral); R26.81 Unsteadiness on feet; E11.65 Type 2 diabetes mellitus with hyperglycemia | CPT/HCPCS: 99212 ==

== ENCOUNTER → 2024-11-12 13:34 | Outpatient (REF) | payer MEDICARE, OTHER, SELFPAY | LOC: RAD 13:34 | PROVIDERS: ATTENDING PHYSICIAN Internal Medicine | DX: M79.89 Other specified soft tissue disorders (principal); L97.812 Non-pressure chronic ulcer of other part of right lower leg with fat layer exposed; L03.115 Cellulitis of right lower limb | CPT/HCPCS: 93971 ==